=== PATIENT | female | born 1930 | race Caucasian/White ===

== ENCOUNTER 2017-01-20 21:48 | Inpatient (IN) | payer BC, MEDICARE ==
[~2017-01-20] VITALS: Ht 152.4 cm; Wt 56.7 kg
[~2017-01-20 21:48] MED LIST: PERI0.126 SWISH-SPIT; POLYSOL14 EACH EYE; VITA100064 PO
[2017-01-20] MEDS ORDERED: IOHEXOL 350 MG/ML 10 ML VIAL (for RAD DIAG) IVCONTRAST ONE (21:49)
[2017-01-20 21:50] VITALS: BP 215/95; PULSE 65; RESP 16; TEMP 97; O2SAT 99
[2017-01-20] MEDS ORDERED: SODIUM CHLORID 0.9% 500 ML INJ 500 ML IV ONE (22:15)
[2017-01-20] MEDS ORDERED: META48.53 PO (22:15)
[2017-01-20] MEDS ORDERED: SODIUM CHLORIDE 0.9% FLUSH 10 ML FLUSH IV FLUSH PRN (22:15)
[2017-01-20] MEDS ORDERED: ONDANSETRON HCL 4 MG/2 ML VIAL IVP ONE (22:15)
--- NOTE | 2017-01-20 22:35 | PD ---
HPI Chief Complaint: GI Complaint Time Seen by Provider: 22:09 Travel History International Travel<30 days: No Contact w/Intl Traveler<30days: No Traveled to known affect area: No History of Present Illness HPI This is an 86-year-old female who presents to the emergency department with increasing abdominal distention and vomiting. She has a colostomy which she's had for 18 years. She says over the past week she's been having hard stools coming from her ostomy and she's been very nauseous, constant, severe, worse this evening. She has a hernia at the area of her ostomy but feels like her stomach is more distended than normal. She says she feels like if she threw up she would feel better. Her doctor told her to take Metamucil which she's been using but she doesn't feel any better. PFSH Past Medical History Arthritis: Yes Asthma: No Atrial Fibrillation: Yes Autoimmune Disease: No Blood Disorders: No Heart Rhythm Problems: No Cancer: Yes (COLON AND BREAST) Cardiovascular Problems: Yes High Cholesterol: No Chemotherapy: Yes (1998 for colon cancer) Chest Pain: No Congestive Heart Failure: No COPD: No Cerebrovascular Accident: No Diminished Hearing: No Gastrointestinal Disorders: Yes (patient states abd hernia, rectal hernia ) GERD: Yes Glaucoma: No Genitourinary: No Hepatitis: No Hiatal Hernia: No Hypertension: Yes (tAKES NO MEDS) Kidney Stones: No Musculoskeletal: No Neurologic: Yes (tremors/shakes) Psychiatric: No Reproductive: No Respiratory: No Myocardial Infarction: No Radiation Therapy: Yes (1998) Renal Failure: No Seizures: No Sleep Apnea: No Thyroid Disease: No Ulcer: Yes Influenza Vaccination: Yes PNEUMOCCOCAL Vaccine (Year): 1994 ?: Not Menopausal: Yes : 3 Para: 3 Past Surgical History Abdominal Surgery: Yes (colon resection with COLOSTOMY 1998-CANCER) AICD: No Appendectomy: Yes Eye Surgery: Yes (cataracts both eyes) Genitourinary Surgery: No Mastectomy: Yes (LEFT 1994) Pacemaker: No Other Surgery: Yes (MASTECTOMY ON LEFT SIDE) Social History Alcohol Use: No Tobacco Use: No Substance Use: No Allergies-Medications (Allergen,Severity, Reaction): Coded Allergies: adhesive (Unverified Allergy, Severe, 10/25/16) penicillin G (Unverified Allergy, Unknown, GETS A RASH, 10/25/16) Reported Meds & Prescriptions Reported Meds & Active Scripts Active Reported Metamucil Original Texture (Psyllium Hydrophilic Mucilloid) 3.4 Gram/7 Gram Pow 1 Scoop PO TID PRN 1 rounded TEASPOON in 8 oz of liquid at the first sign of irregularity. Vitamin D3 (Cholecalciferol) 1,000 Unit Tab 1 Tab PO DAILY Review of Systems Except as stated in HPI: all other systems reviewed are Neg Physical Exam Narrative GENERAL:Well appearing, no acute distress SKIN: Focused skin assessment warm and dry. HEAD: Atraumatic. Normocephalic. EYES: Pupils equal and round. No injection or drainage. ENT: Moist mucous membranes NECK: Trachea midline. CARDIOVASCULAR: Regular rate and rhythm. No murmur appreciated. RESPIRATORY: Clear to auscultation. Breath sounds equal bilaterally. GASTROINTESTINAL: Abdomen soft, hypoactive bowel sounds in the upper abdomen, some tenderness to palpation over a large ventral hernia in the left lower quadrant adjacent to the patient's colostomy with fullness of the hernia. No rebound or guarding. MUSCULOSKELETAL: No obvious deformities. NEUROLOGICAL: Awake and alert. No obvious cranial nerve deficits. Moving all extremities. PSYCHIATRIC: Appropriate mood and affect; insight and judgment normal. Data Data Last Documented VS Vital Signs Date Time Temp Pulse Resp B/P (MAP) Pulse Ox O2 Delivery O2 Flow Rate FiO2 01/21/17 01:05 64 16 203/92 (129) 97 Room Air 01/20/17 21:50 97.0 Orders Orders Complete Blood Count With Diff (01/20/17 22:15) Comprehensive Metabolic Panel (01/20/17 22:15) Lipase (01/20/17 22:15) Urinalysis - C+S If Indicated (01/20/17 22:15) Ct Abd/Pel W Iv Contrast(Rout) (01/20/17 22:15) Iv Access Insert/Monitor (01/20/17 22:15) Ecg Monitoring (01/20/17 22:15) Oximetry (01/20/17 22:15) Ondansetron Inj (Zofran Inj) (01/20/17 22:15) Sodium Chloride 0.9% Flush (Ns Flush) (01/20/17 22:15) Sodium Chlorid 0.9% 500 Ml Inj (Ns 500 M (01/20/17 22:15) Iohexol 350 Inj (Omnipaque 350 Inj) (01/20/17 21:49) Hydralazine Inj (Apresoline Inj) (01/21/17 00:30) Urine Culture (01/21/17 00:15) Lidocaine Pf 4% Neb (Lidocaine Pf 4% Neb (01/21/17 01:00) Insert Ng Tube (01/21/17 00:53) Ng Gastric Tube Insert/Monitor (01/21/17 01:48) Ciprofloxacin 400 Mg Premix (Cipro 400 M (01/21/17 02:45) Labs Laboratory Tests Test 01/20/17 22:40 01/21/17 00:15 White Blood Count 6.1 TH/MM3 Red Blood Count 4.88 MIL/MM3 Hemoglobin 14.0 GM/DL Hematocrit 43.2 % Mean Corpuscular Volume 88.5 FL Mean Corpuscular Hemoglobin 28.8 PG Mean Corpuscular Hemoglobin Concent 32.5 % Red Cell Distribution Width 13.0 % Platelet Count 279 TH/MM3 Mean Platelet Volume 8.5 FL Neutrophils (%) (Auto) 58.5 % Lymphocytes (%) (Auto) 30.6 % Monocytes (%) (Auto) 9.2 % Eosinophils (%) (Auto) 1.2 % Basophils (%) (Auto) 0.5 % Neutrophils # (Auto) 3.5 TH/MM3 Lymphocytes # (Auto) 1.9 TH/MM3 Monocytes # (Auto) 0.6 TH/MM3 Eosinophils # (Auto) 0.1 TH/MM3 Basophils # (Auto) 0.0 TH/MM3 CBC Comment DIFF FINAL Differential Comment Blood Urea Nitrogen 15 MG/DL Creatinine 1.10 MG/DL Random Glucose 116 MG/DL Total Protein 7.5 GM/DL Albumin 3.9 GM/DL Calcium Level 9.5 MG/DL Alkaline Phosphatase 57 U/L Aspartate Amino Transf (AST/SGOT) 14 U/L Alanine Aminotransferase (ALT/SGPT) 16 U/L Total Bilirubin 0.6 MG/DL Sodium Level 139 MEQ/L Potassium Level 3.6 MEQ/L Chloride Level 100 MEQ/L Carbon Dioxide Level 33.8 MEQ/L Anion Gap 5 MEQ/L Estimat Glomerular Filtration Rate 47 ML/MIN Lipase 427 U/L Urine Color YELLOW Urine Turbidity CLEAR Urine pH 7.5 Urine Specific [place] 1.022 Urine Protein TRACE mg/dL Urine Glucose (UA) NEG mg/dL Urine Ketones NEG mg/dL Urine Occult Blood NEG Urine Nitrite NEG Urine Bilirubin NEG Urine Leukocyte Esterase MOD Urine RBC 0-2 /hpf Urine WBC 25-49 /hpf Urine Squamous Epithelial Cells 0-5 /hpf Urine Bacteria OCC /hpf Microscopic Urinalysis Comment CULTURE INDICATED MDM Medical Decision Making Medical Screen Exam Complete: Yes Emergency Medical Condition: Yes Interpretation(s) Afebrile, hypertensive No leukocytosis Bicarbonate is 33 Mild renal insufficiency Lipase is mildly elevated Urinalysis: Urinary tract infection Last 24 hours Impressions Abdomen/Pelvis CT 01/20/17 2215 Signed Impressions: Service Date/Time: Friday, January 20, 2017 23:51 - CONCLUSION: 1. Abdominal wall hernia in the left lower quadrant causing gastric outlet obstruction. 2. Cholelithiasis Antoni Concepcion MD Differential Diagnosis Small bowel obstruction, incarcerated hernia, strangulated hernia, malignancy Narrative Course This is an 86-year-old female who presents to the emergency department with a history of a ventral hernia on the left lower quadrant with nausea and poor ostomy output with distention of her abdomen. She was placed on a monitor and an IV was established. Labs were obtained which are reassuring. CT abdomen and pelvis demonstrates profound distention of the stomach with a gastric outlet obstruction due to her ventral hernia in the left lower quadrant. An NG tube was placed and the patient put out 900 cc of fluid. On reexam her hernia in the left lower quadrant which was initially full was soft, reducible, and non -tender. The patient feels much better. I don't think this reflects a strangulated or incarcerated hernia. I think the patient does require routine surgical consultation. She evidently did see Dr. Marty carr regarding her hernia in the past but they were hesitant to perform surgery given her age. Patient will be admitted for continued NG tube decompression. She does have marked hypertension. If you look over her old records she has a history of hypertension in the past and she doesn't take anything for it. I gave her a small dose of hydralazine and this reduced her map by 20%. She also received ciprofloxacin for a urinary tract infection. Diagnosis Primary Impression: Gastric outlet obstruction Admitting Information Admitting Physician Requests: Admit Analy Chow MD Jan 20, 2017 22:35
[2017-01-20 22:40] VITALS: BP 213/133; PULSE 60; RESP 16; O2SAT 100
[2017-01-20 22:45] VITALS: RESP 16; O2SAT 100
[2017-01-20 22:52] LABS: AUTOMATED NEUTROPHIL # 3.5 TH/MM3 (1.8-7.7); BASOPHIL % 0.5 % (0.0-2.0); EOSINOPHIL # 0.1 TH/MM3 (0-0.4); EOSINOPHIL % 1.2 % (0.0-4.0); HEMATOCRIT 43.2 % (35.0-46.0); HEMO FLAGS DIFF FINAL; LYMPH % 30.6 % (9.0-44.0); LYMPHOCYTE # 1.9 TH/MM3 (1.0-4.8); MEAN CELL VOLUME 88.5 FL (80.0-100.0); MEAN CORPUSCULAR HEMOGLOBIN 28.8 PG (27.0-34.0); MEAN CORPUSCULAR HGB CONC 32.5 % (32.0-36.0); MONO % 9.2 % (0.0-8.0); NEUT % 58.5 % (16.0-70.0); PLATELET COUNT 279 TH/MM3 (150-450); RED BLOOD COUNT 4.88 MIL/MM3 (4.00-5.30); WHITE BLOOD COUNT 6.1 TH/MM3 (4.0-11.0)
[2017-01-20 22:59] LABS: CHLORIDE 100 MEQ/L (98-107); POTASSIUM 3.6 MEQ/L (3.5-5.1); SODIUM (NA) 139 MEQ/L (136-145)
[2017-01-20 23:03] LABS: ANION GAP 5 MEQ/L (5-15); BICARBONATE 33.8 MEQ/L (21.0-32.0)
[2017-01-20 23:04] LABS: BLOOD UREA NITROGEN 15 MG/DL (7-18)
[2017-01-20 23:06] LABS: ALT (GPT) 16 U/L (10-53); AST (GOT) 14 U/L (15-37); GLOMERULAR FILTRATION RATE 47 ML/MIN (>89)
[2017-01-20 23:07] VITALS: BP 213/133; PULSE 60; RESP 16; O2SAT 100
[2017-01-20 23:08] LABS: TOTAL BILIRUBIN ADULT 0.6 MG/DL (0.2-1.0)
[2017-01-20 23:09] LABS: ALKALINE PHOSPHATASE 57 U/L (45-117)
[2017-01-20 23:15] VITALS: BP 225/77; PULSE 61; RESP 16; O2SAT 96
[2017-01-20 23:30] VITALS: BP 215/103; PULSE 60; RESP 16; O2SAT 99
[2017-01-21] VITALS (13 sets, daily range): BP systolic 125–237; BP diastolic 51–128; PULSE 64–79; RESP 16–20; TEMP 97.3–98.4; O2SAT 95–99
[2017-01-21] MEDS ORDERED: hydrALAZINE HCL 20 MG/ML VIAL IV PUSH ONE ×2 (00:30→06:30)
[2017-01-21 00:33] LABS: BLOOD, URINE NEG (NEG); GLUCOSE,URINE NEG (NEG); KETONE, URINE NEG (NEG); NITRITE,URINE NEG (NEG); PH, URINE 7.5 (5.0-8.5)
--- NOTE | 2017-01-21 00:34 | RADRPT ---
EXAM DATE/TIME: 01/20/2017 23:51 [facility] COMPARISON: CT ABDOMEN & PELVIS W CONTRAST, July 16, 2014, 22:05. INDICATIONS : Abdomen swelling with nause for three weeks. IV CONTRAST: 70 cc Omnipaque 350 (iohexol) IV ORAL CONTRAST: No oral contrast ingested. RADIATION DOSE: 6.89 CTDIvol (mGy) MEDICAL HISTORY : Arthritis. Cardiovascular disease Hypertension. SURGICAL HISTORY : Colon resection. Mastectomy, left.Appendectomy. ENCOUNTER: Initial ACUITY: 3 weeks PAIN SCALE: 0/10 LOCATION: Abdomen TECHNIQUE: Volumetric scanning of the abdomen and pelvis was performed. Using automated exposure control and ad justment of the mA and/or kV according to patient size, radiation dose was kept as low as reasonably achievable to obtain optimal diagnostic quality images. DICOM format image data is available electro nically for review and comparison. FINDINGS: Examination of the lung bases demonstrates no abnormality. No pleural fluid is identified. No pulmona ry nodules are present. The liver and spleen are normal in size and no focal defects are identified. 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 There are multiple stones within the gallbladder wit hout wall thickening or pericholecystic fluid the largest measuring 3 mm. There is a hernia defect in the abdominal wall the left lower quadrant with the stomach herniated through the defect. This is ma rkedly distended and fluid-filled and is causing obstruction at the level of the antrum of the stomac h. Nondilated colon is also present within the hernia defect. Examination of the pelvis demonstrates no evidence of free fluid or pelvic mass. No abnormally enlarg ed inguinal or retroperitoneal lymph nodes are present. The bladder is unremarkable. CONCLUSION: 1. Abdominal wall hernia in the left lower quadrant causing gastric outlet obstruction. 2. Cholelithiasis Antoni Concepcion MD on January 21, 2017 at 0:23 Board Certified Radiologist. This report was verified electronically.
[2017-01-21 00:45] LABS: BACTERIA, URINE OCC /hpf; COMMENT (UR) CULTURE INDICATED; CULTURE IF INDICATED CULTURE INDICATED; RBC, URINE 0-2 /hpf (0-3); SQUAMOUS EPITHELIAL CELL URINE 0-5 /hpf (0-5); URINE COLOR YELLOW (YELLW/STRAW)
[2017-01-21] MEDS ORDERED: RESP: LIDOCAINE HCL 4% PF 5 ML NEB INH ONE (01:00)
[2017-01-21] MEDS ORDERED: CIPROFLOXACIN 400 MG PREMIX 200 ML IV ONE (02:45)
[2017-01-21] MEDS ORDERED: SODIUM CHLORIDE 0.9% FLUSH 10 ML FLUSH IV FLUSH PRN (03:00)
[2017-01-21] MEDS ORDERED: LACTULOSE SYRUP 20 GM/30 ML CUP PO PRN (03:00)
[2017-01-21] MEDS ORDERED: SENNOSIDES 8.6 MG TAB PO PRN (03:00)
[2017-01-21] MEDS ORDERED: RESP: LIDOCAINE HCL 4% PF 5 ML NEB NEB ONE (03:00)
[2017-01-21] MEDS ORDERED: MORPHINE SULFATE 4 MG/ML INJ IV PUSH PRN ×2 (03:00)
[2017-01-21] MEDS ORDERED: MAGNESIUM HYDROXIDE SUSP 30 ML CUP PO PRN (03:00)
[2017-01-21] MEDS ORDERED: BISACODYL 10 MG SUPP RECTAL PRN (03:00)
[2017-01-21] MEDS ORDERED: ACETAMINOPHEN 1000 MG/100 ML 100 ML IV PRN (03:00)
[2017-01-21] MEDS: SODIUM CHLOR 0.9% 1000 ML INJ 1,000 ML IV SCH ×3 (04:22→23:26)
[2017-01-21] MEDS: SODIUM CHLORIDE 0.9% FLUSH 10 ML FLUSH IV FLUSH SCH ×2 (09:00→20:48)
[2017-01-21] MEDS ORDERED: cloNIDine HCL 0.1 MG TAB PO ONE (09:00)
--- NOTE | 2017-01-21 09:37 | HHI.HP ---
[facility] Eduardo Casanova DO Admission Diagnosis gastric outlet obstruction Diagnoses: Chief Complaint: Abdominal pain Travel History International Travel<30 Days: No Contact w/Intl Traveler <30 Da: No Traveled to Known Affected Are: No History of Present Illness 86-year-old white female being admitted for gastric outlet obstruction. Patient was in her usual state of health until about one week ago when she began having intermittent nausea, vomiting and abdominal pain. Says that at worse the pain was a 10 out of 10 but then would go away on its own. Pain had initially happened twice earlier in the week and then recurred again for the third time last night prompting her to come to the emergency room. Did not have any particular alleviating or exacerbating factors. Stated that her abdomen felt bloated with a protrusion noted in it. This hernia was apparently reduced in the ER. CT scan did show a abdominal hernia with significant gastric distention. NG tube was placed and started on low to intermittent decompression. Patient is stating that her pain is better since admission. Patient says that her surgeon is Dr. carr. Patient states that she is tired of living because of her health issues constantly debilitating her. She denies any suicidal ideation and even denies feeling depressed but says that she is just simply "sick of it" implying her health issues. She gets tearful when she discusses this. Review of Systems Except as stated in HPI: all other systems reviewed are Neg Past Family Social History Past Medical History Arthritis, atrial fibrillation, breast cancer, colon cancer, abdominal hernia, acid reflux, hypertension Past Surgical History Left-sided mastectomy, bilateral cataract surgery, colonic resection with colostomy secondary to cancer Allergies: Coded Allergies: adhesive (Unverified Allergy, Severe, 10/25/16) penicillin G (Unverified Allergy, Unknown, GETS A RASH, 10/25/16) ciprofloxacin (Verified Adverse Reaction, Intermediate, 01/21/17) LOCALIZED REDNESS AND ITCHING AT IV SITE. NO SWELLING. Family History Multiple sclerosis and one son, Parkinson's disease and another son, rheumatoid arthritis in daughter Social History Denies any alcohol, tobacco, or substance use Physical Exam Vital Signs Vital Signs Date Time Temp Pulse Resp B/P (MAP) Pulse Ox O2 Delivery O2 Flow Rate FiO2 01/21/17 08:00 97.3 78 18 126/60 (82) 96 01/21/17 05:56 97.8 72 18 193/72 (112) 98 01/21/17 04:00 97.4 65 20 200/88 (125) 99 01/21/17 03:59 01/21/17 03:35 77 151/78 (102) 01/21/17 03:05 79 16 166/89 (114) 97 Room Air 01/21/17 02:32 70 18 182/78 (112) 97 Room Air 01/21/17 01:55 70 18 184/70 (108) 97 Room Air 01/21/17 01:05 64 16 203/92 (129) 97 Room Air 01/21/17 00:45 64 16 232/128 (162) 96 Room Air 01/21/17 00:20 70 16 237/128 (164) 97 Room Air 01/20/17 23:30 60 16 215/103 (140) 99 Room Air 01/20/17 23:15 61 16 225/77 (126) 96 Room Air 01/20/17 22:45 16 100 Room Air 01/20/17 22:40 60 16 213/133 (159) 100 Room Air 01/20/17 22:12 16 01/20/17 21:50 97.0 65 16 215/95 (135) 99 Physical Exam VS: Afebrile GENERAL: Thin elderly white female lying in bed, awake, well-nourished SKIN: Warm and dry. EYES: No scleral icterus. No injection or drainage. ENT: No nasal bleeding or discharge. Mucous membranes pink and moist. Dentures in place. NG tube in place CARDIOVASCULAR: Regular rate and rhythm. no murmurs RESPIRATORY: No accessory muscle use. Clear to auscultation. Breath sounds equal bilaterally. GASTROINTESTINAL: Abdomen soft, no hernia is palpated at this time, has an obvious colostomy bag pink mucosa noted and no stool in the current bag. Abdomen is otherwise nontender and the patient says she is not hurting at this time. Normoactive bowel sounds. Extremities: No clubbing, cyanosis, or edema. No obvious deformities. MUSCULOSKELETAL: Extremities without clubbing, cyanosis, or edema. No obvious deformities. grossly intact ROM with 5/5 strength in upper and lower extremities proximally NEUROLOGICAL: Awake and alert. No obvious cranial nerve deficits. No facial droop nor slurred speech noted. PSYCHIATRIC: Tearful mood and sad affect which is consolable; insight and judgment normal. Laboratory Laboratory Tests Test 01/20/17 22:40 01/21/17 00:15 White Blood Count 6.1 Red Blood Count 4.88 Hemoglobin 14.0 Hematocrit 43.2 Mean Corpuscular Volume 88.5 Mean Corpuscular Hemoglobin 28.8 Mean Corpuscular Hemoglobin Concent 32.5 Red Cell Distribution Width 13.0 Platelet Count 279 Mean Platelet Volume 8.5 Neutrophils (%) (Auto) 58.5 Lymphocytes (%) (Auto) 30.6 Monocytes (%) (Auto) 9.2 Eosinophils (%) (Auto) 1.2 Basophils (%) (Auto) 0.5 Neutrophils # (Auto) 3.5 Lymphocytes # (Auto) 1.9 Monocytes # (Auto) 0.6 Eosinophils # (Auto) 0.1 Basophils # (Auto) 0.0 CBC Comment DIFF FINAL Differential Comment Blood Urea Nitrogen 15 Creatinine 1.10 Random Glucose 116 Total Protein 7.5 Albumin 3.9 Calcium Level 9.5 Alkaline Phosphatase 57 Aspartate Amino Transf (AST/SGOT) 14 Alanine Aminotransferase (ALT/SGPT) 16 Total Bilirubin 0.6 Sodium Level 139 Potassium Level 3.6 Chloride Level 100 Carbon Dioxide Level 33.8 Anion Gap 5 Estimat Glomerular Filtration Rate 47 Lipase 427 Urine Color YELLOW Urine Turbidity CLEAR Urine pH 7.5 Urine Specific [place] 1.022 Urine Protein TRACE Urine Glucose (UA) NEG Urine Ketones NEG Urine Occult Blood NEG Urine Nitrite NEG Urine Bilirubin NEG Urine Leukocyte Esterase MOD Urine RBC 0-2 Urine WBC 25-49 Urine Squamous Epithelial Cells 0-5 Urine Bacteria OCC Microscopic Urinalysis Comment CULTURE INDICATED Date/Time Source Procedure Growth Status 01/21/17 00:15 Urine Clean Catch Urine Culture Pending Received Result Diagram: 01/20/17223901/20/172239 Caprini VTE Risk Assessment Caprini VTE Risk Assessment: Mod/High Risk (score >= 2) Caprini Risk Assessment Model Point Value = 1 Point Value = 2 Point Value = 3 Point Value = 5 Age 41-60 Minor surgery BMI > 25 kg/m2 Swollen legs Varicose veins or History of unexplained or recurrent spontaneous Oral contraceptives or hormone replacement Sepsis (< 1 month) Serious lung disease, including pneumonia (< 1 month) Abnormal pulmonary function Acute myocardial infarction Congestive heart failure (< 1 month) History of inflammatory bowel disease Medical patient at bed rest Age 61-74 Arthroscopic surgery Major open surgery (> 45 min) Laparoscopic surgery (> 45 min) Malignancy Confined to bed (> 72 hours) Immobilizing plaster cast Central venous access Age >= 75 History of VTE Family history of VTE Factor V Leiden Prothrombin [id number] Lupus anticoagulant Anticardiolipin antibodies Elevated serum homocysteine Heparin-induced thrombocytopenia Other congenital or acquired thrombophilia Stroke (< 1 month) Elective arthroplasty Hip, pelvis, or leg fracture Acute spinal cord injury (< 1 month) Prophylaxis Regimen Total Risk Factor Score Risk Level Prophylaxis Regimen 0-1 Low Early ambulation 2 Moderate Order ONE of the following: *Sequential Compression Device (SCD) *Heparin 5000 units SQ BID 3-4 Higher Order ONE of the following medications: *Heparin 5000 units SQ TID *Enoxaparin/Lovenox 40 mg SQ daily (WT < 150 kg, CrCl > 30 mL/min) *Enoxaparin/Lovenox 30 mg SQ daily (WT < 150 kg, CrCl > 10-29 mL/min) *Enoxaparin/Lovenox 30 mg SQ BID (WT < 150 kg, CrCl > 30 mL/min) AND/OR *Sequential Compression Device (SCD) 5 or more Highest Order ONE of the following medications: *Heparin 5000 units SQ TID (Preferred with Epidurals) *Enoxaparin/Lovenox 40 mg SQ daily (WT < 150 kg, CrCl > 30 mL/min) *Enoxaparin/Lovenox 30 mg SQ daily (WT < 150 kg, CrCl > 10-29 mL/min) *Enoxaparin/Lovenox 30 mg SQ BID (WT < 150 kg, CrCl > 30 mL/min) AND *Sequential Compression Device (SCD) Assessment and Plan Assessment and Plan Gastric outlet obstruction - Independently reviewed the CT scan shows significant constipation all throughout as well as a herniated bowel with significant gastric distention ( this was prior to manual reduction performed in the emergency room) - Case discussed with general surgery, plan to continue low to intermittent NG decompression for at least the next 24 hours - Diet per surgery - Mildly elevated lipase which is likely from intestinal strain Nausea - Likely secondary to above problem There are no signs or symptoms of a urinary tract infection, - we'll stop the antibiotic unless urine culture grows out pathologic bacteria. Hypertension - Likely untreated at home, will start nifedipine with as needed clonidine DVT prophylaxis with Lovenox Physician Certification 2 Midnight Certification Type: Admission for Inpatient Services Order for Inpatient Services The services are ordered in accordance with Medicare regulations or non- Medicare payer requirements, as applicable. In the case of services not specified as inpatient-only, they are appropriately provided as inpatient services in accordance with the 2-midnight benchmark. Estimated LOS (days): 2 2 days is the estimated time the patient will need to remain in the hospital, assuming treatment plan goals are met and no additional complications. Post-Hospital Plan: Home Moshe Connor MD Jan 21, 2017 09:37
[2017-01-21] MEDS: NIFEdipine 10 MG CAP PO SCH ×3 (10:16→21:12)
[2017-01-21] MEDS: DOCUSATE SODIUM 50 MG/SENNA 8.6 MG TAB PO SCH ×2 (10:16→21:12)
--- NOTE | 2017-01-21 14:46 | MB ---
cc: RESHMA EVANS MD DATE OF CONSULTATION: 01/21/2017. REASON FOR CONSULTATION: Gastric outlet obstruction, abdominal pain. 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 The patient states she developed significant abdominal pain and nausea and vomiting approximately one week ago and it continued to get worse. The patient states the pain was initially a 10/10 sharp, located around the parastomal hernia and worse with movement and better with lying still. The patient also has evidence of obstruction with multiple episodes of nausea, vomiting and decreased ostomy output. The patient came to the emergency department. Further evaluation including a CT scan showed a significantly large dilated stomach with evidence of herniation of stomach and bowel in her parastomal hernia. An nasogastric tube was placed with decompression and surgery was consulted for further evaluation. On my exam, the patient states she feels much better. Now her abdominal pain has improved significantly and I am evaluating her and her parastomal hernia appears to be completely reduced. The patient is still yet for colostomy output and was decompressed with nasogastric tube. She denies fever or chills. She does have a significant history of again medical and surgical history in the past. She has had intermittent obstructions before that have improved with nonoperative management. She was under discussion for consideration for a parastomal hernia repair. PAST MEDICAL HISTORY: 1. Arthritis. 2. Atrial fibrillation. 3. Colon cancer. 4. Breast cancer. 5. Hernia. 6. Reflux. 7. Hypertension. PAST SURGICAL HISTORY: 1. Appendectomy. 2. Left breast mastectomy. 3. Bilateral cataract surgery. 4. Colon resection with colostomy due to colon cancer. The patient has been in remission for over 18 years. ALLERGIES: 1. PENICILLIN. 2. CIPRO. 3. ADHESIVE TAPE. MEDICATIONS: See the electronic medical record. FAMILY HISTORY: Some with multiple sclerosis. Some with Parkinson's. Daughter with rheumatoid arthritis. SOCIAL HISTORY: Denies smoking, ethyl alcohol or IV drug abuse. REVIEW OF SYSTEMS: GENERAL: Denies eye pain, ear pain. NECK: Denies swelling or pain. CHEST: Denies cough or wheeze. HEART: Atrial fibrillation. Denies palpitations or chest pain. ABDOMEN: Complains of nausea and vomiting and abdominal pain, hernia. GENITOURINARY: Denies dysuria or hematuria. ENDOCRINE: Denies polyuria or polydipsia. INTEGUMENT: Denies masses or lesions. NEUROLOGIC: Denies numbness or tingling. PSYCHIATRIC: Denies change in mood or sensorium. PHYSICAL EXAMINATION: GENERAL: In no acute distress. VITAL SIGNS: 97.3, pulse 78, respirations 18, blood pressure 126/16, oxygen saturation 96%. HEAD, EYES, EARS, NOSE, THROAT: Pupils equal, round and reactive. NECK: The neck is supple. Trachea is midline. Nasogastric tube in place. LUNGS: Bilateral expansion. Clear. HEART: No murmur. S1 and S2. ABDOMEN: Soft. Nondistended. Palpable herniated defect around the colostomy. Colostomy with bag in place. Good seal. No evidence of stool or gas in the bag currently. MUSCULOSKELETAL: Warm, well-perfused moving all extremities. NEUROLOGIC: GCS of 15, 5/5 motor all extremities. PSYCHIATRIC: Good insight. Good judgment. LABORATORY AND DIAGNOSTIC DATA: WBCs 6.1, hemoglobin 14, hematocrit 43.2, platelets 279,000. Sodium 139, potassium 3.6, chloride 100, BUN 15, creatinine 1.1, calcium 9.5, total bilirubin 0.6, AST 14, ALT 16, albumin 3.9, lipase 427. CT reviewed by myself showing a significant abdominal distention with abdominal wall hernia and distal stomach with herniation and hernia causing gastric outlet obstruction. ASSESSMENT: An 86-year-old female with multiple medical issues. 1. History of parastomal hernia that was initially incarcerated that has subsequently been reduced and the patient is currently on nasogastric tube compression. PLAN: After full clinical, radiologic, laboratory workup the patient with the above-named issues includin. Incarcerated hernia which again has evidently been reduced. Therefore nonemergent surgical intervention necessary. Discussed with the patient to has been discussing with Dr. Hoffman for possible operative intervention. We will consider operation at this time and will discuss with Dr. Hoffman whether the patient will need to stay in the hospital or if the patient does desire to go home and have this worked up as an outpatient. Currently the patient with recent NG tube placement. I recommend continuing it for at least 24 hours and then consider p.o. challenge. this was discussed with the patient in detail. Further, continue IV fluid resuscitation, correct and check any electrolyte abnormalities and assist with pain control. Medicine to do overall of medical management. Thank you for the consultation. MD NARDA Parra/JOE /11:45 AM /2:34 PM
[2017-01-21] MEDS ORDERED: CIPROFLOXACIN 400 MG PREMIX 200 ML IV SCH (23:00)
[2017-01-22] VITALS (7 sets, daily range): BP systolic 142–187; BP diastolic 64–87; PULSE 67–82; RESP 12–17; TEMP 96.2–98.6; O2SAT 94–98
[2017-01-22] MEDS: NIFEdipine 10 MG CAP PO SCH ×3 (05:50→23:14)
[2017-01-22 07:20] LABS: CHLORIDE 105 MEQ/L (98-107); POTASSIUM 3.5 MEQ/L (3.5-5.1); SODIUM (NA) 138 MEQ/L (136-145)
[2017-01-22 07:31] LABS: AUTOMATED NEUTROPHIL # 5.4 TH/MM3 (1.8-7.7); BASOPHIL # 0.1 TH/MM3 (0-0.2); EOSINOPHIL # 0.1 TH/MM3 (0-0.4); HEMATOCRIT 39.7 % (35.0-46.0); HEMO FLAGS DIFF FINAL; LYMPH % 15.6 % (9.0-44.0); LYMPHOCYTE # 1.2 TH/MM3 (1.0-4.8); MEAN CELL VOLUME 89.1 FL (80.0-100.0); MEAN CORPUSCULAR HEMOGLOBIN 29.5 PG (27.0-34.0); MEAN CORPUSCULAR HGB CONC 33.1 % (32.0-36.0); MONO % 10.7 % (0.0-8.0); NEUT % 71.7 % (16.0-70.0); PLATELET COUNT 230 TH/MM3 (150-450); RED BLOOD COUNT 4.46 MIL/MM3 (4.00-5.30); RED CELL DISTRIBUTION WIDTH 13.3 % (11.6-17.2); WHITE BLOOD COUNT 7.6 TH/MM3 (4.0-11.0)
[2017-01-22 07:48] LABS: ALKALINE PHOSPHATASE 48 U/L (45-117); ALT (GPT) 12 U/L (10-53); ANION GAP 8 MEQ/L (5-15); AST (GOT) 13 U/L (15-37); BICARBONATE 24.8 MEQ/L (21.0-32.0); BLOOD UREA NITROGEN 7 MG/DL (7-18); GLOMERULAR FILTRATION RATE 83 ML/MIN (>89); TOTAL BILIRUBIN ADULT 1.1 MG/DL (0.2-1.0)
[2017-01-22] MEDS: SODIUM CHLORIDE 0.9% FLUSH 10 ML FLUSH IV FLUSH SCH ×2 (09:00→21:00)
[2017-01-22] MEDS: SODIUM CHLOR 0.9% 1000 ML INJ 1,000 ML IV SCH ×2 (09:08→23:16)
[2017-01-22] MEDS: DOCUSATE SODIUM 50 MG/SENNA 8.6 MG TAB PO SCH ×2 (09:08→20:50)
[2017-01-22] MEDS ORDERED: SOD PHOSPHATE/SOD BIPHOSPHATE (ADULT) ENEMA 133ML RECTAL ONE (12:00)
--- NOTE | 2017-01-22 15:40 | HHI.PR ---
Subjective Remarks Nursing reports no deterioration since last night. Patient denies any pain since admission. Has had over 575 mL's suctioned since admission when speaking with nursing this morning. Patient still has continence being suctioned out actively. Objective Vital Signs Date Time Temp Pulse Resp B/P (MAP) Pulse Ox O2 Delivery O2 Flow Rate FiO2 01/22/17 12:00 97.5 80 12 182/79 (113) 97 01/22/17 09:23 97.3 67 16 168/76 (106) 98 01/22/17 04:00 98.6 70 16 173/82 (112) 96 01/22/17 00:00 98.3 68 16 142/64 (90) 96 01/21/17 21:00 98.4 78 18 164/74 (104) 95 01/21/17 16:00 98.2 69 168/87 (114) 97 I/O 01/21/17 01/21/17 01/21/17 01/22/17 01/22/17 01/22/17 07:00 15:00 23:00 07:00 15:00 23:00 Intake Total 700 ml 800 ml 530 ml 1164 ml 306 ml Output Total 2050 ml 200 ml 275 ml Balance -1350 ml 800 ml 330 ml 889 ml 306 ml Intake Oral 0 ml IV Total 700 ml 800 ml 530 ml 1164 ml 306 ml Output Urine Total 800 ml Gastric Drainage Total 1250 ml 200 ml 275 ml # Voids 2 1 2 2 # Bowel Movements 1 Result Diagram: 01/22/1746 01/22/1746 Objective Remarks Has NG tube in place with low to intermittent suction Abdomen has no protruding hernias, no abdominal tenderness, colostomy bag intact A/P Assessment and Plan Gastric outlet obstruction - CT showing herniated stomach w/ distention as well has herniated bowel - D/w Dr. Mccord, transferring pt to [facility] where Dr. Hoffman is expected to take to OR in am Nausea - resolved There are no signs or symptoms of a urinary tract infection, - we'll stop the antibiotic unless urine culture grows out pathologic bacteria. Hypertension - nifedipine with as needed clonidine, starting lisinopril as well given poor control. Labs stable. DVT prophylaxis with Lovenox - giving one-time dose of Lovenox today, OR planned tomorrow so will not receive further dosing, to resume dosing postop per general surgery and hospitalist team. Moshe Connor MD Jan 22, 2017 15:40
--- NOTE | 2017-01-22 15:55 | HHI.PR ---
cc: Katie Mccord MD Subjective Subjective Notes DAILY PROGRESS NOTE FOR SURGICAL ATTENDING, DR. KATIE MCCORD I feel better after the NG tube was placed I saw Dr. Hoffman earlier this year and was talking about surgery Dr. hoffman is going to see me tomorrow Objective Vitals/I&O Vital Signs Date Time Temp Pulse Resp B/P (MAP) Pulse Ox O2 Delivery O2 Flow Rate FiO2 01/22/17 12:00 97.5 80 12 182/79 (113) 97 01/21/17 03:05 Room Air Labs Laboratory Tests Test 01/22/17 06:46 White Blood Count 7.6 Red Blood Count 4.46 Hemoglobin 13.2 Hematocrit 39.7 Mean Corpuscular Volume 89.1 Mean Corpuscular Hemoglobin 29.5 Mean Corpuscular Hemoglobin Concent 33.1 Red Cell Distribution Width 13.3 Platelet Count 230 Mean Platelet Volume 8.9 Neutrophils (%) (Auto) 71.7 Lymphocytes (%) (Auto) 15.6 Monocytes (%) (Auto) 10.7 Eosinophils (%) (Auto) 1.0 Basophils (%) (Auto) 1.0 Neutrophils # (Auto) 5.4 Lymphocytes # (Auto) 1.2 Monocytes # (Auto) 0.8 Eosinophils # (Auto) 0.1 Basophils # (Auto) 0.1 CBC Comment DIFF FINAL Differential Comment Blood Urea Nitrogen 7 Creatinine 0.67 Random Glucose 95 Total Protein 6.2 Albumin 3.2 Calcium Level 7.9 Alkaline Phosphatase 48 Aspartate Amino Transf (AST/SGOT) 13 Alanine Aminotransferase (ALT/SGPT) 12 Total Bilirubin 1.1 Sodium Level 138 Potassium Level 3.5 Chloride Level 105 Carbon Dioxide Level 24.8 Anion Gap 8 Estimat Glomerular Filtration Rate 83 Date/Time Source Procedure Growth Status 01/21/17 00:15 Urine Clean Catch Urine Culture - Final 10-50,000 CFU/ML MIXED GRAM POSITIVE ... Complete Radiology Last Impressions Abdomen/Pelvis CT 01/20/17 7672 Signed Impressions: Service Date/Time: Friday, January 20, 2017 23:51 - CONCLUSION: 1. Abdominal wall hernia in the left lower quadrant causing gastric outlet obstruction. 2. Cholelithiasis Antoni Concepcion MD Lungs: Clear Abdomen: Non-distended, Non-tender, Other (ostomy with minimal output left lower quadrant hernias been reducedPatient has NG tube in place) Narrative Exam Patient has NG tube in place hernia reduced 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 (3) Gastric outlet obstruction ICD Codes: K31.1 - Adult hypertrophic pyloric stenosis Status: Acute (4) Abnormal CT of the abdomen ICD Codes: R93.5 - Abnormal findings on diagnostic imaging of other abdominal regions, including retroperitoneum Status: Chronic (5) Gallstones ICD Codes: K80.20 - Calculus of gallbladder without cholecystitis without obstruction Status: Chronic (6) History of colon cancer ICD Codes: Z85.038 - Personal history of other malignant neoplasm of large intestine Status: Chronic Assessment and Plan 86-year-old female who has a fairly sizable impressive parastomal hernia that's been present for some time Earlier this year she was evaluated by Dr. Marty hoffman as an outpatient and the patient was considering surgery Recently admitted for gastric outlet obstruction was thought to be secondary to this parastomal hernia containing half the stomach and small bowel and some transverse colon This is been reduced after placement of G-tube It is noted she also has gallstones Dr. Hoffman will see her tomorrow to consider surgical intervention on this parastomal hernia Attending Statement NOTE FOR SURGICAL ATTENDING, DR. KATIE MCCORD I agree with above assessment and plan. The following services were provided during this hospital visit: Chart data review, vital sign assessments/reviewing monitor data Review of consultations notes if present. Medication orders/review and/or management Ordering and/or reviewing lab tests Ordering and/or interpreting/reviewing x-rays and/or diagnostic studies Care of the patient and discussion of the patient with the care team Documentation time To help prompt me to consider important information that might be impacting today's encounter and assessment, information from prior notes written by myself or my colleagues may have been "brought forward/copy and pasted" into today's note. Problem Qualifiers (1) Parastomal hernia: Qualified Codes: K43.3 - Parastomal hernia with obstruction, without gangrene Katie Mccord MD Jan 22, 2017 15:55
[2017-01-22] MEDS ORDERED: ENOXAPARIN SODIUM 30 MG/0.3 ML SYRINGE SQ ONE (16:00)
[2017-01-22] MEDS: LISINOPRIL 10 MG TAB PO SCH (16:38)
[2017-01-22] MEDS ORDERED: cloNIDine HCL 0.1 MG TAB PO PRN (22:30)
[2017-01-23] VITALS (7 sets, daily range): BP systolic 106–145; BP diastolic 46–75; PULSE 50–74; RESP 16–18; TEMP 96–98; O2SAT 95–98
[2017-01-23] MEDS: SODIUM CHLOR 0.9% 1000 ML INJ 1,000 ML IV SCH ×2 (04:52→14:52)
[2017-01-23] MEDS: NIFEdipine 10 MG CAP PO SCH ×3 (06:29→20:51)
--- NOTE | 2017-01-23 08:46 | HHI.PR ---
Subjective Subjective Notes feels much better, wants NG out. reports ostomy is working well Objective Vitals/I&O Vital Signs Date Time Temp Pulse Resp B/P (MAP) Pulse Ox O2 Delivery O2 Flow Rate FiO2 01/23/17 08:00 97.3 59 18 115/75 (88) 95 01/21/17 03:05 Room Air Labs Date/Time Source Procedure Growth Status 01/21/17 00:15 Urine Clean Catch Urine Culture - Final 10-50,000 CFU/ML MIXED GRAM POSITIVE ... Complete Radiology Last Impressions Abdomen/Pelvis CT 01/20/172214 Signed Impressions: Service Date/Time: Friday, January 20, 2017 23:51 - CONCLUSION: 1. Abdominal wall hernia in the left lower quadrant causing gastric outlet obstruction. 2. Cholelithiasis Antoni Concepcion MD Abdomen: Non-distended, Non-tender Narrative Exam hernia reduced, abdomen soft 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 (3) Gastric outlet obstruction ICD Codes: K31.1 - Adult hypertrophic pyloric stenosis Status: Acute (4) Abnormal CT of the abdomen ICD Codes: R93.5 - Abnormal findings on diagnostic imaging of other abdominal regions, including retroperitoneum Status: Chronic (5) Gallstones ICD Codes: K80.20 - Calculus of gallbladder without cholecystitis without obstruction Status: Chronic (6) History of colon cancer ICD Codes: Z85.038 - Personal history of other malignant neoplasm of large intestine Status: Chronic Assessment and Plan large parastomal hernia long discussion with patient and her daughter (via phone) about risks and benefits of repair vs observation. she does not want to go thru this again and wants to have surgery. she understands risk and accepts it. Problem Qualifiers (1) Parastomal hernia: Qualified Codes: K43.3 - Parastomal hernia with obstruction, without gangrene Marty Hoffman MD Jan 23, 2017 08:46
[2017-01-23] MEDS: SODIUM CHLORIDE 0.9% FLUSH 10 ML FLUSH IV FLUSH SCH ×2 (09:00→20:51)
[2017-01-23] MEDS: DOCUSATE SODIUM 50 MG/SENNA 8.6 MG TAB PO SCH ×2 (09:46→20:51)
[2017-01-23] MEDS: LISINOPRIL 10 MG TAB PO SCH (09:46)
[2017-01-23] MEDS ORDERED: NEOSTIGMINE 3 MG/3 ML SYR IV ONE (12:00)
[2017-01-23] MEDS ORDERED: ceFAZolin INJ 1,000 MG VIAL IV ONE ×2 (12:00→13:30)
[2017-01-23] MEDS ORDERED: ONDANSETRON HCL 4 MG/2 ML VIAL IV PUSH ONE (12:00)
[2017-01-23] MEDS ORDERED: ROCURONIUM INJ 50 MG/5 ML SYRINGE IV PUSH ONE (12:00)
[2017-01-23] MEDS ORDERED: PROPOFOL 200 MG/20 ML AMP IV ONE (12:00)
[2017-01-23] MEDS ORDERED: DEXAMETHASONE SOD PHOS 4 MG/ML VIAL IV ONE (12:00)
[2017-01-23] MEDS ORDERED: LIDOCAINE HCL 1% PF 5 ML AMPULE OTHER ONE (12:00)
[2017-01-23] MEDS ORDERED: GLYCOPYRROLATE 1 MG/5 ML SYRINGE IV PUSH ONE (12:00)
[2017-01-23] MEDS ORDERED: BACITRACIN TOP OINT 15 GM TUBE ONE (12:48)
[2017-01-23] MEDS ORDERED: LIDOCAINE 1%/EPINEPHrine 1:100,000 SOLN 50 ML VIAL ONE (12:48)
[2017-01-23] MEDS ORDERED: BUPIVACAINE/EPINEPHRINE 0.5% PF 30 ML VIAL ONE (14:23)
[2017-01-23] MEDS ORDERED: DO NOT ADM ANY ANTICOAGULANT DRUGS PRN (15:08)
[2017-01-23] MEDS ORDERED: *morphine SULFATE 8 MG/ML PERIprocedure ONLY ONE (15:23)
--- NOTE | 2017-01-23 15:47 | MP ---
cc: RYLEY WYATT M.D. DATE OF SURGERY: 01/23/2017 PREOPERATIVE DIAGNOSIS Symptomatic large parastomal hernia. POSTOPERATIVE DIAGNOSIS Symptomatic large parastomal hernia. PROCEDURE PERFORMED Parastomal hernia repair with mesh. SURGEON Ryley Wyatt. ANESTHESIA General endotracheal. COMPLICATIONS None. INDICATION FOR PROCEDURE Ms. Mejias is a pleasant 78-year-old female who I saw several months ago in the office with a large parastomal hernia. She has a history of colon cancer and has a permanent ostomy in her left middle quadrant. At that time she was offered observation versus repair. She initially went with observation. The patient reports over the last several weeks she has had intermittent episodes of abdominal pain associated with pain around her stoma site and a large bulge. She was able to reduce the hernia on several occasions but most recently she had some difficulty reducing the hernia and developed progressive nausea and vomiting. She was brought to the emergency department where she has had a CT scan of the abdomen and pelvis which revealed the majority of her stomach in the hernia sac as well as transverse colon and she had a gastric outlet obstruction. An NG tube was placed and the hernia was reduced in the emergency room and she did well. The patient was admitted for observation. Surgical consultation was requested. The patient was seen and evaluated and offered continued observation versus repair. Because she had this severe episode she wanted to proceed with repair. Because of her advanced age she was warned this was a high-risk procedure and she was willing to accept this. DETAILS OF PROCEDURE The patient was identified, brought to the operating room and placed supine on the operating table. After adequate general anesthesia was achieved the abdomen was prepped and draped in standard surgical fashion. A Ray-Naveed was placed in the stoma and Ioban placed over it. A midline incision was made using the patient's previous midline incision after anesthetizing the skin and subcutaneous tissue with 0.25% Marcaine. Dissection proceeded down immediately into the hernia sac which was just under the skin. The hernia sac was opened. The hernia sac was found to contain mostly small bowel. The small bowel was reduced back into the abdominal cavity. The hernia sac was then excised at its base circumferentially around the descending colon which was seen going up to the stoma site. The fascial edges were cleaned off circumferentially. Attention was now directed to repair. Repair was accomplished using a two-layer mesh technique. First primary repair was used to hold the small bowel back within the abdominal cavity. A 0 Prolene suture interrupted was used to close the defect transversely. Once this was accomplished the fascia was cleaned off over several centimeters away from the primary repair. A piece of [place] Bio-A mesh was then introduced. The knots in the mesh was used to conform right around the colon coming through the abdominal wall fascia. The defect where the colon was going through was checked and easily admitted 1-2 fingers without any problem. The mesh was then secured circumferentially over top of the primary repair using 2-0 Vicryl suture. With this the defect was completely covered in two layers and there was generous mesh overlap. The wound was copiously irrigated with normal saline solution. 0.25% Marcaine was injected around the fascia where the sutures were. The wound was then closed in two layers using 3-0 Vicryl for the subcutaneous fat and skin ale for the skin. A ABDULKADIR dressing was then applied to the surgical wound. The Ioban was then removed off the ostomy and the Ray-Naveed removed. An ostomy appliance was then applied. The patient tolerated the procedure with minimal blood loss and no instability. MD GISSEL Morse/JOE /3:15 PM /3:41 PM
--- NOTE | 2017-01-23 18:44 | HHI.PR ---
Subjective Remarks denies cp/sob denies nausea or vomiting vital signs stable - noted to be bradycardic Objective Vitals Vital Signs Date Time Temp Pulse Resp B/P (MAP) Pulse Ox O2 Delivery O2 Flow Rate FiO2 01/23/17 16:00 96.9 50 18 124/58 (80) 98 01/23/17 15:43 97.9 54 18 131/90 (104) 100 Nasal Cannula 2 01/23/17 15:30 52 20 138/65 (89) 100 Nasal Cannula 2 01/23/17 15:15 62 15 152/79 (103) 100 Nasal Cannula 2 01/23/17 15:07 97.9 83 17 161/72 (101) 98 Nasal Cannula 2 01/23/17 11:46 98.0 60 16 140/64 (89) 95 01/23/17 08:00 97.3 59 18 115/75 (88) 95 01/23/17 04:00 96.4 67 17 145/70 (95) 96 01/23/17 00:00 97.5 74 16 111/58 (75) 97 01/22/17 22:00 97.4 69 17 187/87 (120) 96 I/O 01/22/17 01/22/17 01/22/17 01/23/17 01/23/17 01/23/17 07:00 15:00 23:00 07:00 15:00 23:00 Intake Total 1164 ml 306 ml 704 ml 679 ml 1000 ml 240 ml Output Total 275 ml 300 ml 30 ml Balance 889 ml 306 ml 404 ml 679 ml 970 ml 240 ml Intake Oral 0 ml 240 ml IV Total 1164 ml 306 ml 704 ml 679 ml Other 1000 ml Gastric Drainage Total 275 ml 300 ml Estimated Blood Loss 30 ml # Voids 2 2 2 2 4 # Bowel Movements 1 Result Diagram: 01/22/1746 01/22/1746 Imaging Last Impressions Abdomen/Pelvis CT 01/20/17 Signed Impressions: Service Date/Time: Friday, January 20, 2017 23:51 - CONCLUSION: 1. Abdominal wall hernia in the left lower quadrant causing gastric outlet obstruction. 2. Cholelithiasis Antoni Concepcion MD Objective Remarks AAOx3 PERRLA Clear lungs BL Abdomen is soft, tender to palpation of surgical area. Surgical incision ocvered by dressing C/D/I Procedures sp repair of peristomal hernia with Mesh. Medications and IVs Current Medications Medications (Trade) Dose Ordered Sig/Paul Route Start Time Stop Time Status Last Admin Sodium Chloride 1,000 ml @ 100 mls/hr Q10H IV 01/21/17 02:52 01/22/17 23:16 (NS Flush) 2 ml UNSCH PRN IV FLUSH 01/21/17 03:00 (NS Flush) 2 ml BID IV FLUSH 01/21/17 09:00 (Zofran Inj) 4 mg Q6H PRN IVP 01/21/17 03:00 Acetaminophen 100 ml @ 400 mls/hr Q6H PRN IV 01/21/17 03:00 (Kaity-Colace) 1 tab BID PO 01/21/17 09:00 01/23/17 09:46 (Milk Of Magnesia Liq) 30 ml Q12H PRN PO 01/21/17 03:00 (Senokot) 17.2 mg Q12H PRN PO 01/21/17 03:00 (Dulcolax Supp) 10 mg DAILY PRN RECTAL 01/21/17 03:00 (Lactulose Liq) 30 ml DAILY PRN PO 01/21/17 03:00 (Procardia) 10 mg Q8HR PO 01/21/17 09:00 01/23/17 06:29 (Prinivil) 10 mg DAILY PO 01/22/17 15:45 01/23/17 09:46 (Catapres) 0.1 mg Q6H PRN PO 01/22/17 22:30 01/22/17 23:14 Cefazolin Sodium 1000 mg/Sodium Chloride 100 ml @ 200 mls/hr CASINO DEALER IV 01/23/17 08:45 01/26/17 08:44 (Morphine Inj) 2 mg Q3H PRN IV PUSH 01/23/17 15:15 ([place] 5-325 Mg) 1 tab Q4H PRN PO 01/23/17 15:15 Miscellaneous Information ALL NURSING DEPARTME... UNSCH PRN .XX 01/23/17 15:08 01/24/17 15:07 Urinary Catheter: No Vascular Central Line Catheter: No A/P Problem List: (1) Parastomal hernia ICD Code: K43.5 - Parastomal hernia without obstruction or gangrene Status: Chronic Plan: The patient was admitted to the medical floor, started on IV fluids and place nothing by mouth. The patient is status post parastomal hernia repair with mesh. Patient on clear liquid diet and tolerating it. Management as per general surgery. (2) Nausea ICD Code: R11.0 - Nausea Plan: Resolved. Continue Zofran IV as needed for nausea. (3) HTN (hypertension) ICD Code: I10 - Essential (primary) hypertension Plan: Is to be stable today. The pressure elevated previously, however much improved after the patient also nifedipine. Continue lisinopril and nifedipine. (4) Abnormal urinalysis ICD Code: R82.90 - Unspecified abnormal findings in urine Plan: Urine culture concurrent with contamination. Patient is asymptomatic and white blood cell count is normal. Continue to monitor off antibiotics. (5) BRANDY (acute kidney injury) ICD Code: N17.9 - Acute kidney failure, unspecified Status: Resolved Plan: Retina admission 1.1, down to 0.6 today. Likely due to prerenal azotemia due to dehydration. Now much improved after IV fluid administration. (6) Elevated lipase ICD Code: R74.8 - Abnormal levels of other serum enzymes Status: Acute Plan: Likely secondary to hernia incarceration. The patient denies nausea or abdominal pain. Continue to monitor lipase. Assessment and Plan DVT prophylaxis: SCDs, chemoprophylaxis as per general surgery. Problem Qualifiers (1) Parastomal hernia: Qualified Codes: K43.3 - Parastomal hernia with obstruction, without gangrene (2) HTN (hypertension): Qualified Codes: I10 - Essential (primary) hypertension Peter Matson MD Jan 23, 2017 18:44
--- NOTE | 2017-01-23 19:32 | EKG ---
Date Performed: 01/23/2017 Time Performed: 10:30:05 PTAGE: 86 years EKG: Sinus rhythm NORMAL ECG Since PREVIOUS TRACING , no significant change noted PREVIOUS TRACIN07/15/2014 03.27 DOCTOR: Mari Lebron Interpretating Date/Time 01/23/2017 19:30:36
[2017-01-23] MEDS: ACETAMINOPHEN/HYDROcodone 325 MG/5 MG TAB PO PRN (21:00)
[2017-01-24] VITALS (7 sets, daily range): BP systolic 118–169; BP diastolic 58–77; PULSE 62–119; RESP 16–20; TEMP 96.9–99.5; O2SAT 92–97
[2017-01-24] MEDS: SODIUM CHLOR 0.9% 1000 ML INJ 1,000 ML IV SCH ×2 (00:46→11:43)
[2017-01-24] MEDS: NIFEdipine 10 MG CAP PO SCH ×3 (06:37→20:49)
[2017-01-24] MEDS: LISINOPRIL 10 MG TAB PO SCH (07:57)
[2017-01-24] MEDS: DOCUSATE SODIUM 50 MG/SENNA 8.6 MG TAB PO SCH ×2 (07:57→20:49)
[2017-01-24] MEDS: SODIUM CHLORIDE 0.9% FLUSH 10 ML FLUSH IV FLUSH SCH ×2 (07:57→20:51)
--- NOTE | 2017-01-24 08:56 | HHI.PR ---
Subjective Subjective Notes Resting in bed Had nightmare last night but thankful to the nurse who helped her last night Objective Vitals/I&O Vital Signs Date Time Temp Pulse Resp B/P (MAP) Pulse Ox O2 Delivery O2 Flow Rate FiO2 01/24/17 07:56 97.8 90 18 129/60 (83) 92 01/23/17 21:15 Nasal Cannula 2.00 Labs Date/Time Source Procedure Growth Status 01/21/17 00:15 Urine Clean Catch Urine Culture - Final 10-50,000 CFU/ML MIXED GRAM POSITIVE ... Complete Radiology Last Impressions Abdomen/Pelvis CT 01/20/17 5585 Signed Impressions: Service Date/Time: Friday, January 20, 2017 23:51 - CONCLUSION: 1. Abdominal wall hernia in the left lower quadrant causing gastric outlet obstruction. 2. Cholelithiasis Antoni Concepcion MD Cardiovascular: Regular Lungs: Clear Abdomen: Other (ABDULKADIR in place; ostomy with appliance ) Extremities: No edema 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 (3) Gastric outlet obstruction ICD Codes: K31.1 - Adult hypertrophic pyloric stenosis Status: Acute (4) Abnormal CT of the abdomen ICD Codes: R93.5 - Abnormal findings on diagnostic imaging of other abdominal regions, including retroperitoneum Status: Chronic (5) Gallstones ICD Codes: K80.20 - Calculus of gallbladder without cholecystitis without obstruction Status: Chronic (6) History of colon cancer ICD Codes: Z85.038 - Personal history of other malignant neoplasm of large intestine Status: Chronic Assessment and Plan 86 year old female POD1 parastomal hernia repair with mesh -Continue sips of clear liquids -Decrease IVF rate -OOB and mobilize; PT eval and treat Problem Qualifiers (1) Parastomal hernia: Qualified Codes: K43.3 - Parastomal hernia with obstruction, without gangrene Aleja Gillespie Jan 24, 2017 08:56
--- NOTE | 2017-01-24 16:16 | HHI.PR ---
Subjective Remarks Patient seen at 11:45 am Patient denies cp/sob. Tolerating clear liquid diet denies fevers/chills, diarrhea, nausea, vomiting or abdominal pain. Objective Vitals Vital Signs Date Time Temp Pulse Resp B/P (MAP) Pulse Ox O2 Delivery O2 Flow Rate FiO2 01/24/17 15:51 99.5 92 16 155/70 (98) 95 01/24/17 12:00 98.6 65 16 169/70 (103) 97 01/24/17 07:56 97.8 90 18 129/60 (83) 92 01/24/17 04:59 62 01/24/17 04:53 97.4 65 16 155/67 (96) 97 01/24/17 00:00 96.9 70 16 140/58 (85) 96 01/23/17 21:15 98 Nasal Cannula 2.00 01/23/17 20:00 96.0 63 16 106/46 (66) 97 I/O 01/23/17 01/23/17 01/23/17 01/24/17 01/24/17 01/24/17 07:00 15:00 23:00 07:00 15:00 23:00 Intake Total 679 ml 1000 ml 240 ml 360 ml Output Total 30 ml Balance 679 ml 970 ml 240 ml 360 ml Intake Oral 0 ml 240 ml IV Total 679 ml 360 ml Other 1000 ml Estimated Blood Loss 30 ml # Voids 2 4 2 Result Diagram: 01/22/17 0646 01/22/17 0646 Imaging Last Impressions Abdomen/Pelvis CT 01/20/17 2090 Signed Impressions: Service Date/Time: Friday, January 20, 2017 23:51 - CONCLUSION: 1. Abdominal wall hernia in the left lower quadrant causing gastric outlet obstruction. 2. Cholelithiasis Antoni Concepcion MD Objective Remarks AAOx3 PERRLA Clear lungs BL Abdomen is soft, tender to palpation of surgical area. Surgical incision ocvered by dressing C/D/I Procedures sp repair of peristomal hernia with Mesh. Medications and IVs Current Medications Medications (Trade) Dose Ordered Sig/Paul Route Start Time Stop Time Status Last Admin Sodium Chloride 1,000 ml @ 60 mls/hr [id number] IV 01/21/17 02:52 01/24/17 11:43 (NS Flush) 2 ml UNSCH PRN IV FLUSH 01/21/17 03:00 (NS Flush) 2 ml BID IV FLUSH 01/21/17 09:00 (Zofran Inj) 4 mg Q6H PRN IVP 01/21/17 03:00 Acetaminophen 100 ml @ 400 mls/hr Q6H PRN IV 01/21/17 03:00 (Kaity-Colace) 1 tab BID PO 01/21/17 09:00 01/24/17 07:57 (Milk Of Magnesia Liq) 30 ml Q12H PRN PO 01/21/17 03:00 (Senokot) 17.2 mg Q12H PRN PO 01/21/17 03:00 (Dulcolax Supp) 10 mg DAILY PRN RECTAL 01/21/17 03:00 (Lactulose Liq) 30 ml DAILY PRN PO 01/21/17 03:00 (Procardia) 10 mg Q8HR PO 01/21/17 09:00 01/24/17 14:01 (Prinivil) 10 mg DAILY PO 01/22/17 15:45 01/24/17 07:57 (Catapres) 0.1 mg Q6H PRN PO 01/22/17 22:30 01/22/17 23:14 Cefazolin Sodium 1000 mg/Sodium Chloride 100 ml @ 200 mls/hr COSTUME SPECIALIST IV 01/23/17 08:45 01/26/17 08:44 (Morphine Inj) 2 mg Q3H PRN IV PUSH 01/23/17 15:15 ([place] 5-325 Mg) 1 tab Q4H PRN PO 01/23/17 15:15 01/23/17 21:00 Urinary Catheter: No Vascular Central Line Catheter: No A/P Problem List: (1) Parastomal hernia ICD Code: K43.5 - Parastomal hernia without obstruction or gangrene Status: Chronic (2) Nausea ICD Code: R11.0 - Nausea (3) HTN (hypertension) ICD Code: I10 - Essential (primary) hypertension (4) Abnormal urinalysis ICD Code: R82.90 - Unspecified abnormal findings in urine (5) BRANDY (acute kidney injury) ICD Code: N17.9 - Acute kidney failure, unspecified Status: Resolved (6) Elevated lipase ICD Code: R74.8 - Abnormal levels of other serum enzymes Status: Acute Assessment and Plan (1) Parastomal hernia Plan: The patient was admitted to the medical floor, started on IV fluids and place nothing by mouth. The patient is status post parastomal hernia repair with mesh. Patient on clear liquid diet and tolerating it. Management as per general surgery. (2) Nausea Plan: Resolved. Continue Zofran IV as needed for nausea. (3) HTN (hypertension) Plan: Is to be stable today. The pressure elevated previously, however much improved after the patient also nifedipine. Continue lisinopril and nifedipine. (4) Abnormal urinalysis Plan: Urine culture concurrent with contamination. Patient is asymptomatic and white blood cell count is normal. Continue to monitor off antibiotics. (5) BRANDY (acute kidney injury) Plan: Likely due to prerenal azotemia due to dehydration. Resolved after IV fluid administration. Creatinine likely at baseline. (6) Elevated lipase Plan: Likely secondary to hernia incarceration. The patient denies nausea or abdominal pain. Continue to monitor lipase. DVT prophylaxis: SCDs, chemoprophylaxis as per general surgery. Discharge Planning Pending GS clearance. Problem Qualifiers (1) Parastomal hernia: Qualified Codes: K43.3 - Parastomal hernia with obstruction, without gangrene (2) HTN (hypertension): Qualified Codes: I10 - Essential (primary) hypertension Peter Matson MD Jan 24, 2017 16:16
[2017-01-24] MEDS: ACETAMINOPHEN/HYDROcodone 325 MG/5 MG TAB PO PRN (23:34)
[2017-01-25] VITALS (7 sets, daily range): BP systolic 134–171; BP diastolic 63–87; PULSE 76–86; RESP 14–18; TEMP 96.9–99.9; O2SAT 92–94
[2017-01-25] MEDS: SODIUM CHLOR 0.9% 1000 ML INJ 1,000 ML IV SCH (04:37)
[2017-01-25] MEDS: NIFEdipine 10 MG CAP PO SCH ×3 (06:00→21:23)
[2017-01-25 07:59] LABS: HEMATOCRIT 38.9 % (35.0-46.0); MEAN CELL VOLUME 89.9 FL (80.0-100.0); MEAN CORPUSCULAR HEMOGLOBIN 29.9 PG (27.0-34.0); MEAN CORPUSCULAR HGB CONC 33.2 % (32.0-36.0); PLATELET COUNT 221 TH/MM3 (150-450); RED BLOOD COUNT 4.33 MIL/MM3 (4.00-5.30); RED CELL DISTRIBUTION WIDTH 14.1 % (11.6-17.2); REVIEW FLAG FINAL; WHITE BLOOD COUNT 13.8 TH/MM3 (4.0-11.0)
[2017-01-25] MEDS: SODIUM CHLORIDE 0.9% FLUSH 10 ML FLUSH IV FLUSH SCH ×2 (08:19→21:23)
[2017-01-25] MEDS: LISINOPRIL 10 MG TAB PO SCH (08:20)
[2017-01-25] MEDS: DOCUSATE SODIUM 50 MG/SENNA 8.6 MG TAB PO SCH ×2 (08:20→21:23)
[2017-01-25 08:29] LABS: BICARBONATE 21.5 MEQ/L (21.0-32.0); POTASSIUM 3.3 MEQ/L (3.5-5.1)
--- NOTE | 2017-01-25 08:39 | HHI.PR ---
Subjective Subjective Notes feels fine, tolerating po, walking around with assistance, reports minimal ostomy output so far, no N/V Objective Vitals/I&O Vital Signs Date Time Temp Pulse Resp B/P (MAP) Pulse Ox O2 Delivery O2 Flow Rate FiO2 01/25/17 04:45 97.4 83 18 134/63 (86) 93 01/23/17 21:15 Nasal Cannula 2.00 Labs Laboratory Tests Test 01/25/17 07:06 White Blood Count 13.8 Red Blood Count 4.33 Hemoglobin 12.9 Hematocrit 38.9 Mean Corpuscular Volume 89.9 Mean Corpuscular Hemoglobin 29.9 Mean Corpuscular Hemoglobin Concent 33.2 Red Cell Distribution Width 14.1 Platelet Count 221 Mean Platelet Volume 9.1 Blood Urea Nitrogen 13 Creatinine 0.64 Random Glucose 123 Calcium Level 8.1 Sodium Level 141 Potassium Level 3.3 Chloride Level 108 Carbon Dioxide Level 21.5 Anion Gap 12 Estimat Glomerular Filtration Rate 88 Date/Time Source Procedure Growth Status 01/21/17 00:15 Urine Clean Catch Urine Culture - Final 10-50,000 CFU/ML MIXED GRAM POSITIVE ... Complete Radiology Last Impressions Abdomen/Pelvis CT 01/20/172214 Signed Impressions: Service Date/Time: Friday, January 20, 2017 23:51 - CONCLUSION: 1. Abdominal wall hernia in the left lower quadrant causing gastric outlet obstruction. 2. 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 (3) Gastric outlet obstruction ICD Codes: K31.1 - Adult hypertrophic pyloric stenosis Status: Acute (4) Abnormal CT of the abdomen ICD Codes: R93.5 - Abnormal findings on diagnostic imaging of other abdominal regions, including retroperitoneum Status: Chronic (5) Gallstones ICD Codes: K80.20 - Calculus of gallbladder without cholecystitis without obstruction Status: Chronic (6) History of colon cancer ICD Codes: Z85.038 - Personal history of other malignant neoplasm of large intestine Status: Chronic Assessment and Plan POD2 - large parastomal hernia advance to full liquids HL IV KCL po consider tap water enema via ostomy next 24-48 hours to get it going again. Problem Qualifiers (1) Parastomal hernia: Qualified Codes: K43.3 - Parastomal hernia with obstruction, without gangrene Marty Hoffman MD Jan 25, 2017 08:38
[2017-01-25] MEDS: POTASSIUM CHLORIDE 20 MEQ CONTROLLED RELEASE TAB PO SCH ×2 (09:36→21:23)
[2017-01-25] MEDS: MORPHINE SULFATE 2 MG/ML INJ IV PUSH PRN (14:00)
[2017-01-25] MEDS ORDERED: HYDR-3516 PO (15:51)
--- NOTE | 2017-01-25 18:48 | HHI.PR ---
Subjective Remarks Patient states that earlier had " pain everywhere which is much better after pain medication" Tolerating diet Denies sob K low Objective Vitals Vital Signs Date Time Temp Pulse Resp B/P (MAP) Pulse Ox O2 Delivery O2 Flow Rate FiO2 01/25/17 16:00 97.4 78 16 155/68 (97) 94 01/25/17 12:00 96.9 79 15 171/74 (106) 93 01/25/17 08:00 99.4 76 14 143/87 (105) 93 01/25/17 04:45 97.4 83 18 134/63 (86) 93 01/25/17 04:22 84 01/25/17 00:00 99.9 86 18 151/68 (95) 92 01/24/17 20:00 98.4 81 18 169/77 (107) 95 I/O 01/24/17 01/24/17 01/24/17 01/25/17 01/25/17 01/25/17 07:00 15:00 23:00 07:00 15:00 23:00 Intake Total 360 ml 620 ml 1000 ml 236 ml 180 ml Output Total 0 ml Balance 360 ml 620 ml 1000 ml 236 ml 180 ml Intake Oral 620 ml 180 ml IV Total 360 ml 1000 ml 236 ml Stool Total 0 ml # Voids 2 4 3 8 # Bowel Movements 0 Result Diagram: 01/25/17 0701/25/17 07 Imaging Last Impressions Abdomen/Pelvis CT 01/20/172214 Signed Impressions: Service Date/Time: Friday, January 20, 2017 23:51 - CONCLUSION: 1. Abdominal wall hernia in the left lower quadrant causing gastric outlet obstruction. 2. Cholelithiasis Antoni Concepcion MD Objective Remarks AAOx3 PERRLA Clear lungs BL Abdomen is soft, tender to palpation of surgical area. Surgical incision ocvered by dressing C/D/I Procedures sp repair of peristomal hernia with Mesh. Medications and IVs Current Medications Medications (Trade) Dose Ordered Sig/Paul Route Start Time Stop Time Status Last Admin (NS Flush) 2 ml UNSCH PRN IV FLUSH 01/21/17 03:00 (NS Flush) 2 ml BID IV FLUSH 01/21/17 09:00 (Zofran Inj) 4 mg Q6H PRN IVP 01/21/17 03:00 Acetaminophen 100 ml @ 400 mls/hr Q6H PRN IV 01/21/17 03:00 (Kaity-Colace) 1 tab BID PO 01/21/17 09:00 01/25/17 08:20 (Milk Of Magnesia Liq) 30 ml Q12H PRN PO 01/21/17 03:00 (Senokot) 17.2 mg Q12H PRN PO 01/21/17 03:00 (Dulcolax Supp) 10 mg DAILY PRN RECTAL 01/21/17 03:00 (Lactulose Liq) 30 ml DAILY PRN PO 01/21/17 03:00 (Procardia) 10 mg Q8HR PO 01/21/17 09:00 01/25/17 13:59 (Prinivil) 10 mg DAILY PO 01/22/17 15:45 01/25/17 08:20 (Catapres) 0.1 mg Q6H PRN PO 01/22/17 22:30 01/22/17 23:14 Cefazolin Sodium 1000 mg/Sodium Chloride 100 ml @ 200 mls/hr ECHO TECHNOLOGIST IV 01/23/17 08:45 01/26/17 08:44 (Morphine Inj) 2 mg Q3H PRN IV PUSH 01/23/17 15:15 01/25/17 14:00 ([place] 5-325 Mg) 1 tab Q4H PRN PO 01/23/17 15:15 01/24/17 23:34 (KCl) 20 meq Q12HR PO 01/25/17 09:00 01/25/17 09:36 A/P Problem List: (1) Parastomal hernia ICD Code: K43.5 - Parastomal hernia without obstruction or gangrene Status: Chronic (2) Nausea ICD Code: R11.0 - Nausea (3) HTN (hypertension) ICD Code: I10 - Essential (primary) hypertension (4) Abnormal urinalysis ICD Code: R82.90 - Unspecified abnormal findings in urine (5) BRANDY (acute kidney injury) ICD Code: N17.9 - Acute kidney failure, unspecified Status: Resolved (6) Elevated lipase ICD Code: R74.8 - Abnormal levels of other serum enzymes Status: Acute Assessment and Plan (1) Parastomal hernia Plan: The patient was admitted to the medical floor, started on IV fluids and place nothing by mouth. The patient is status post parastomal hernia repair with mesh. Patient on clear liquid diet and tolerating it. Management as per general surgery. 01/25 diet advanced to full liquid diet. (2) Nausea Plan: Resolved. Continue Zofran IV as needed for nausea. (3) HTN (hypertension) Plan: Is to be stable today. The pressure elevated previously, however much improved after the patient also nifedipine. Continue lisinopril and nifedipine. (4) Abnormal urinalysis Plan: Urine culture concurrent with contamination. Patient is asymptomatic and white blood cell count is normal. Continue to monitor off antibiotics. (5) BRANDY (acute kidney injury) Plan: Likely due to prerenal azotemia due to dehydration. Resolved after IV fluid administration. Creatinine likely at baseline. (6) Elevated lipase Plan: Likely secondary to hernia incarceration. The patient denies nausea or abdominal pain. Continue to monitor lipase. DVT prophylaxis: SCDs, chemoprophylaxis as per general surgery. Discharge Planning Pending GS clearance. Problem Qualifiers (1) Parastomal hernia: Qualified Codes: K43.3 - Parastomal hernia with obstruction, without gangrene (2) HTN (hypertension): Qualified Codes: I10 - Essential (primary) hypertension Peter Matson MD Jan 25, 2017 18:48
--- NOTE | 2017-01-25 18:49 | HHI.FF ---
Face to Face Verification Diagnosis: (1) Parastomal hernia (2) HTN (hypertension) Physical Therapy Order: Improve ambulation, Strength and gait training Home Health Nursing Order: Wound care and dressing changes Nursing assessment with vital signs I have seen patient Tequila Mejias on 01/25/17. My clinical findings support the need for the requested home health care services because: Limited ability to care for self Need for psychosocial assistance I certify that my clinical findings support that this patient is homebound because: Unsafe to leave home unassisted Unable to use public transportation Peter Matson MD Jan 25, 2017 18:49
[2017-01-25] MEDS: ONDANSETRON HCL 4 MG/2 ML VIAL IVP PRN (23:36)
[2017-01-26 00:44] VITALS: BP 150/68; PULSE 73; RESP 18; TEMP 98.1; O2SAT 96
--- NOTE | 2017-01-26 03:18 | RADRPT ---
EXAM DATE/TIME: 01/26/2017 02:44 [place] COMPARISON: No previous studies available for comparison. INDICATIONS : Abdominal pain. Vomiting. MEDICAL HISTORY : Arthritis. Cardiovascular disease Hypertension. SURGICAL HISTORY : Colon resection. Mastectomy, left.Appendectomy. ENCOUNTER: Initial ACUITY: 1 day PAIN SCORE: 0/10 LOCATION: abdomen. FINDINGS: Supine view of the abdomen was performed. There are numerous loops of air-filled small bowel througho ut the abdomen, some of which are dilated measuring up to 3.9 cm across. The there is some air in the colon. No abnormal masses, calcifications, or organomegaly is seen. The osseous structures are unr emarkable except for sclerosis of the right SI joint. CONCLUSION: Air-filled distended loops of bowel throughout the abdomen. Cutaneous ale suggest recent abdomina l incision Connor Grossman MD on January 26, 2017 at 3:16 Board Certified Radiologist. This report was verified electronically.
[2017-01-26] MEDS: NIFEdipine 10 MG CAP PO SCH ×3 (05:29→21:11)
[2017-01-26] MEDS: ONDANSETRON HCL 4 MG/2 ML VIAL IVP PRN (06:41)
[2017-01-26 08:00] VITALS: BP 139/71; PULSE 89; RESP 17; TEMP 97; O2SAT 95
[2017-01-26] MEDS ORDERED: SODIUM CHLOR 0.9% 1000 ML INJ 1,000 ML IV SCH (10:30)
[2017-01-26] MEDS ORDERED: SOD PHOSPHATE/SOD BIPHOSPHATE (ADULT) ENEMA 133ML RECTAL ONE (11:00)
[2017-01-26] MEDS: POTASSIUM CHLORIDE 20 MEQ CONTROLLED RELEASE TAB PO SCH ×2 (11:44→21:11)
[2017-01-26] MEDS: LISINOPRIL 10 MG TAB PO SCH (11:45)
[2017-01-26] MEDS: DOCUSATE SODIUM 50 MG/SENNA 8.6 MG TAB PO SCH ×2 (11:46→21:11)
[2017-01-26] MEDS: SODIUM CHLORIDE 0.9% FLUSH 10 ML FLUSH IV FLUSH SCH ×2 (11:46→21:12)
[2017-01-26 12:00] VITALS: BP 170/70; PULSE 97; RESP 16; TEMP 97.4; O2SAT 95
--- NOTE | 2017-01-26 12:26 | HHI.PR ---
Subjective Subjective Notes Sitting on the side of the bed With nausea and vomiting overnight Objective Vitals/I&O Vital Signs Date Time Temp Pulse Resp B/P (MAP) Pulse Ox O2 Delivery O2 Flow Rate FiO2 01/26/17 08:00 97.0 89 17 139/71 (93) 95 01/25/17 21:30 21 01/23/17 21:15 Nasal Cannula 2.00 Labs Date/Time Source Procedure Growth Status 01/21/17 00:15 Urine Clean Catch Urine Culture - Final 10-50,000 CFU/ML MIXED GRAM POSITIVE ... Complete Radiology Last Impressions Abdomen/Pelvis CT 01/20/175 Signed Impressions: Service Date/Time: Friday, January 20, 2017 23:51 - CONCLUSION: 1. Abdominal wall hernia in the left lower quadrant causing gastric outlet obstruction. 2. 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 (3) Gastric outlet obstruction ICD Codes: K31.1 - Adult hypertrophic pyloric stenosis Status: Acute (4) Abnormal CT of the abdomen ICD Codes: R93.5 - Abnormal findings on diagnostic imaging of other abdominal regions, including retroperitoneum Status: Chronic (5) Gallstones ICD Codes: K80.20 - Calculus of gallbladder without cholecystitis without obstruction Status: Chronic (6) History of colon cancer ICD Codes: Z85.038 - Personal history of other malignant neoplasm of large intestine Status: Chronic Assessment and Plan 86 year old female POD3 parastomal hernia repair with mesh -NPO; okay for ice and popsicles as tolerated -OOB and mobilize -Restart IVF for gentle hydration -Tap water enema through ostomy -Zofran PRN Problem Qualifiers (1) Parastomal hernia: Qualified Codes: K43.3 - Parastomal hernia with obstruction, without gangrene Aleja Gillespie. [facility] Jan 26, 2017 12:26
[2017-01-26 13:11] LABS: AUTOMATED NEUTROPHIL # 7.6 TH/MM3 (1.8-7.7); BASOPHIL % 0.3 % (0.0-2.0); HEMATOCRIT 44.5 % (35.0-46.0); HEMO FLAGS DIFF FINAL; LYMPH % 5.2 % (9.0-44.0); LYMPHOCYTE # 0.5 TH/MM3 (1.0-4.8); MEAN CORPUSCULAR HEMOGLOBIN 30.2 PG (27.0-34.0); MONO % 8.1 % (0.0-8.0); NEUT % 86.4 % (16.0-70.0); PLATELET COUNT 227 TH/MM3 (150-450); RED CELL DISTRIBUTION WIDTH 13.8 % (11.6-17.2); WHITE BLOOD COUNT 8.8 TH/MM3 (4.0-11.0)
[2017-01-26 13:37] LABS: ALT (GPT) 11 U/L (10-53); ANION GAP 10 MEQ/L (5-15); AST (GOT) 21 U/L (15-37); BICARBONATE 26.6 MEQ/L (21.0-32.0); BLOOD UREA NITROGEN 20 MG/DL (7-18); CHLORIDE 103 MEQ/L (98-107); GLOMERULAR FILTRATION RATE 63 ML/MIN (>89); POTASSIUM 3.6 MEQ/L (3.5-5.1); SODIUM (NA) 140 MEQ/L (136-145)
[2017-01-26 13:42] LABS: ALKALINE PHOSPHATASE 57 U/L (45-117)
[2017-01-26 16:00] VITALS: BP 164/80; PULSE 70; RESP 17; TEMP 97.2; O2SAT 97
--- NOTE | 2017-01-26 16:57 | HHI.PR ---
Subjective Remarks as per RN patient nauseous last night denies abdominal pain, nausea or vomiting. Objective Vitals Vital Signs Date Time Temp Pulse Resp B/P (MAP) Pulse Ox O2 Delivery O2 Flow Rate FiO2 01/26/17 16:00 97.2 70 17 164/80 (108) 97 01/26/17 12:00 97.4 97 16 170/70 (103) 95 01/26/17 08:00 97.0 89 17 139/71 (93) 95 01/26/17 00:44 98.1 73 18 150/68 (95) 96 01/25/17 21:30 21 01/25/17 20:00 83 I/O 01/25/17 01/25/17 01/25/17 01/26/17 01/26/17 01/26/17 07:00 15:00 23:00 07:00 15:00 23:00 Intake Total 1000 ml 236 ml 180 ml 480 ml Output Total 120 ml 905 ml Balance 1000 ml 236 ml 60 ml -425 ml Intake Oral 180 ml 480 ml IV Total 1000 ml 236 ml Output Urine Total 675 ml Emesis 120 ml 230 ml # Voids 3 8 3 # Bowel Movements 0 Result Diagram: 01/26/17 1233 01/26/17 1233 Imaging Last Impressions Abdomen X-Ray 01/26/17 0210 Signed Impressions: Service Date/Time: January 02:44 - CONCLUSION: Air- filled distended loops of bowel throughout the abdomen. Cutaneous ale suggest recent abdominal incision Connor Grossman MD Abdomen/Pelvis CT 01/20/17 4331 Signed Impressions: Service Date/Time: Friday, January 20, 2017 23:51 - CONCLUSION: 1. Abdominal wall hernia in the left lower quadrant causing gastric outlet obstruction. 2. Cholelithiasis Antoni Concepcion MD Objective Remarks AAOx3 PERRLA Clear lungs BL Abdomen is soft, tender to palpation of surgical area. Surgical incision covered by dressing C/D/I no edema in lower extremities Procedures sp repair of peristomal hernia with Mesh. Medications and IVs Current Medications Medications (Trade) Dose Ordered Sig/Paul Route Start Time Stop Time Status Last Admin (NS Flush) 2 ml UNSCH PRN IV FLUSH 01/21/17 03:00 (NS Flush) 2 ml BID IV FLUSH 01/21/17 09:00 01/26/17 11:46 (Zofran Inj) 4 mg Q6H PRN IVP 01/21/17 03:00 01/26/17 06:41 Acetaminophen 100 ml @ 400 mls/hr Q6H PRN IV 01/21/17 03:00 (Kaity-Colace) 1 tab BID PO 01/21/17 09:00 01/26/17 11:46 (Milk Of Magnesia Liq) 30 ml Q12H PRN PO 01/21/17 03:00 (Senokot) 17.2 mg Q12H PRN PO 01/21/17 03:00 (Dulcolax Supp) 10 mg DAILY PRN RECTAL 01/21/17 03:00 (Lactulose Liq) 30 ml DAILY PRN PO 01/21/17 03:00 (Procardia) 10 mg Q8HR PO 01/21/17 09:00 01/26/17 15:45 (Prinivil) 10 mg DAILY PO 01/22/17 15:45 01/26/17 11:45 (Catapres) 0.1 mg Q6H PRN PO 01/22/17 22:30 01/22/17 23:14 (Morphine Inj) 2 mg Q3H PRN IV PUSH 01/23/17 15:15 01/25/17 14:00 ([place] 5-325 Mg) 1 tab Q4H PRN PO 01/23/17 15:15 01/24/17 23:34 (KCl) 20 meq Q12HR PO 01/25/17 09:00 01/26/17 11:44 Sodium Chloride 1,000 ml @ 42 mls/hr [id number] IV 01/26/17 10:30 01/26/17 11:45 A/P Problem List: (1) Parastomal hernia ICD Code: K43.5 - Parastomal hernia without obstruction or gangrene Status: Chronic (2) Nausea ICD Code: R11.0 - Nausea (3) HTN (hypertension) ICD Code: I10 - Essential (primary) hypertension (4) Abnormal urinalysis ICD Code: R82.90 - Unspecified abnormal findings in urine (5) BRANDY (acute kidney injury) ICD Code: N17.9 - Acute kidney failure, unspecified Status: Resolved (6) Elevated lipase ICD Code: R74.8 - Abnormal levels of other serum enzymes Status: Acute Assessment and Plan (1) Parastomal hernia Plan: The patient was admitted to the medical floor, started on IV fluids and place nothing by mouth. The patient is status post parastomal hernia repair with mesh. Patient on clear liquid diet and tolerating it. Management as per general surgery. 01/25 diet advanced to full liquid diet. 01/26 Patient did not tolerate diet overnight. Management as per recommendations as below. -NPO; okay for ice and popsicles as tolerated -OOB and mobilize -Restart IVF for gentle hydration -Tap water enema through ostomy (2) Nausea Plan: Resolved. Continue Zofran IV as needed for nausea. (3) HTN (hypertension) Plan: Is to be stable today. The pressure elevated previously, however much improved after the patient also nifedipine. Continue lisinopril and nifedipine. (4) Abnormal urinalysis Plan: Urine culture concurrent with contamination. Patient is asymptomatic and white blood cell count is normal. Continue to monitor off antibiotics. (5) BRANDY (acute kidney injury) Plan: Likely due to prerenal azotemia due to dehydration. Resolved after IV fluid administration. Creatinine likely at baseline. (6) Elevated lipase Plan: Likely secondary to hernia incarceration. The patient denies nausea or abdominal pain. Continue to monitor lipase. DVT prophylaxis: SCDs, chemoprophylaxis as per general surgery. Discharge Planning Pending clinical improvement. Patient did not tolerate diet. Needs clearance. Problem Qualifiers (1) Parastomal hernia: Qualified Codes: K43.3 - Parastomal hernia with obstruction, without gangrene (2) HTN (hypertension): Qualified Codes: I10 - Essential (primary) hypertension Peter Matson MD Jan 26, 2017 16:57
[2017-01-26 20:00] VITALS: BP 148/63; PULSE 87; RESP 17; TEMP 95.6; O2SAT 93
[2017-01-26] MEDS: ACETAMINOPHEN/HYDROcodone 325 MG/5 MG TAB PO PRN (21:11)
[2017-01-27] VITALS (8 sets, daily range): BP systolic 116–177; BP diastolic 52–79; PULSE 73–99; RESP 16–20; TEMP 95.7–97.6; O2SAT 92–94
[2017-01-27] MEDS: NIFEdipine 10 MG CAP PO SCH ×3 (05:23→19:57)
[2017-01-27 09:15] LABS: AUTOMATED NEUTROPHIL # 5.3 TH/MM3 (1.8-7.7); BASOPHIL % 0.1 % (0.0-2.0); EOSINOPHIL # 0.1 TH/MM3 (0-0.4); EOSINOPHIL % 1.3 % (0.0-4.0); HEMATOCRIT 38.9 % (35.0-46.0); HEMO FLAGS DIFF FINAL; LYMPH % 11.9 % (9.0-44.0); LYMPHOCYTE # 0.8 TH/MM3 (1.0-4.8); MEAN CELL VOLUME 90.3 FL (80.0-100.0); MEAN CORPUSCULAR HEMOGLOBIN 30.7 PG (27.0-34.0); MONO % 11.6 % (0.0-8.0); NEUT % 75.1 % (16.0-70.0); PLATELET COUNT 259 TH/MM3 (150-450); RED BLOOD COUNT 4.31 MIL/MM3 (4.00-5.30); RED CELL DISTRIBUTION WIDTH 13.9 % (11.6-17.2)
[2017-01-27 09:22] LABS: ANION GAP 10 MEQ/L (5-15); AST (GOT) 16 U/L (15-37); BICARBONATE 25.3 MEQ/L (21.0-32.0); BLOOD UREA NITROGEN 24 MG/DL (7-18); CHLORIDE 109 MEQ/L (98-107); POTASSIUM 3.5 MEQ/L (3.5-5.1); SODIUM (NA) 144 MEQ/L (136-145)
[2017-01-27 09:25] LABS: ALT (GPT) 15 U/L (10-53); GLOMERULAR FILTRATION RATE 71 ML/MIN (>89); TOTAL BILIRUBIN ADULT 0.8 MG/DL (0.2-1.0)
[2017-01-27 09:26] LABS: ALKALINE PHOSPHATASE 50 U/L (45-117)
--- NOTE | 2017-01-27 10:08 | HHI.PR ---
Subjective Subjective Notes "I feel like a new woman!" No nausea/vomiting overnight Objective Vitals/I&O Vital Signs Date Time Temp Pulse Resp B/P (MAP) Pulse Ox O2 Delivery O2 Flow Rate FiO2 01/27/17 07:30 96.7 77 16 116/57 (76) 92 01/25/17 21:30 21 01/23/17 21:15 Nasal Cannula 2.00 Labs Laboratory Tests Test 01/26/17 12:33 01/27/17 08:33 White Blood Count 8.8 7.0 Red Blood Count 5.00 4.31 Hemoglobin 15.1 13.2 Hematocrit 44.5 38.9 Mean Corpuscular Volume 89.0 90.3 Mean Corpuscular Hemoglobin 30.2 30.7 Mean Corpuscular Hemoglobin Concent 34.0 34.0 Red Cell Distribution Width 13.8 13.9 Platelet Count 227 259 Mean Platelet Volume 9.4 9.2 Neutrophils (%) (Auto) 86.4 75.1 Lymphocytes (%) (Auto) 5.2 11.9 Monocytes (%) (Auto) 8.1 11.6 Eosinophils (%) (Auto) 0.0 1.3 Basophils (%) (Auto) 0.3 0.1 Neutrophils # (Auto) 7.6 5.3 Lymphocytes # (Auto) 0.5 0.8 Monocytes # (Auto) 0.7 0.8 Eosinophils # (Auto) 0.0 0.1 Basophils # (Auto) 0.0 0.0 CBC Comment DIFF FINAL DIFF FINAL Differential Comment Hematology Comments Blood Urea Nitrogen 20 24 Creatinine 0.85 0.77 Random Glucose 153 115 Total Protein 6.9 6.6 Albumin 2.9 2.7 Calcium Level 8.9 8.4 Alkaline Phosphatase 57 50 Aspartate Amino Transf (AST/SGOT) 21 16 Alanine Aminotransferase (ALT/SGPT) 11 15 Total Bilirubin 1.0 0.8 Sodium Level 140 144 Potassium Level 3.6 3.5 Chloride Level 103 109 Carbon Dioxide Level 26.6 25.3 Anion Gap 10 10 Estimat Glomerular Filtration Rate 63 71 Date/Time Source Procedure Growth Status 01/21/17 00:15 Urine Clean Catch Urine Culture - Final 10-50,000 CFU/ML MIXED GRAM POSITIVE ... Complete Radiology Last Impressions Abdomen/Pelvis CT 01/20/17 3455 Signed Impressions: Service Date/Time: Friday, January 20, 2017 23:51 - CONCLUSION: 1. Abdominal wall hernia in the left lower quadrant causing gastric outlet obstruction. 2. 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 (3) Gastric outlet obstruction ICD Codes: K31.1 - Adult hypertrophic pyloric stenosis Status: Acute (4) Abnormal CT of the abdomen ICD Codes: R93.5 - Abnormal findings on diagnostic imaging of other abdominal regions, including retroperitoneum Status: Chronic (5) Gallstones ICD Codes: K80.20 - Calculus of gallbladder without cholecystitis without obstruction Status: Chronic (6) History of colon cancer ICD Codes: Z85.038 - Personal history of other malignant neoplasm of large intestine Status: Chronic Assessment and Plan 86 year old female POD4 parastomal hernia repair with mesh -Start full liquids -DC IVF -OOB and mobilize -Zofran PRN -Rehab vs [facility] Problem Qualifiers (1) Parastomal hernia: Qualified Codes: K43.3 - Parastomal hernia with obstruction, without gangrene Aleja Gillespie Jan 27, 2017 10:08
[2017-01-27] MEDS: DOCUSATE SODIUM 50 MG/SENNA 8.6 MG TAB PO SCH ×2 (10:43→19:57)
[2017-01-27] MEDS: LISINOPRIL 10 MG TAB PO SCH (10:47)
[2017-01-27] MEDS: POTASSIUM CHLORIDE 20 MEQ CONTROLLED RELEASE TAB PO SCH ×2 (10:48→19:57)
[2017-01-27] MEDS: SODIUM CHLORIDE 0.9% FLUSH 10 ML FLUSH IV FLUSH SCH ×2 (10:51→19:57)
[2017-01-27] MEDS: ONDANSETRON HCL 4 MG/2 ML VIAL IVP PRN ×2 (11:00→20:08)
--- NOTE | 2017-01-27 16:16 | HHI.PR ---
Subjective Remarks As per RN report patient nauseous denies cp/sob stable vital signs afebrile Objective Vitals Vital Signs Date Time Temp Pulse Resp B/P (MAP) Pulse Ox O2 Delivery O2 Flow Rate FiO2 01/27/17 15:29 73 01/27/17 11:30 97.0 89 16 139/52 (81) 94 01/27/17 07:30 96.7 77 16 116/57 (76) 92 01/27/17 04:00 95.7 84 17 129/64 (85) 94 01/27/17 00:00 96.6 89 18 134/69 (90) 93 01/26/17 20:00 87 01/26/17 20:00 95.6 87 17 148/63 (91) 93 I/O 01/26/17 01/26/17 01/26/17 01/27/17 01/27/17 01/27/17 07:00 15:00 23:00 07:00 15:00 23:00 Intake Total 480 ml 480 ml 603 ml Output Total 905 ml 650 ml Balance -425 ml -170 ml 603 ml Intake Oral 480 ml 480 ml IV Total 603 ml Output Urine Total 675 ml Stool Total 650 ml Emesis 230 ml # Voids 3 2 1 # Bowel Movements 4 Result Diagram: 01/27/1783201/27/17832 Objective Remarks AAOx3 PERRLA Clear lungs BL Abdomen is soft, tender to palpation of surgical area. Surgical incision covered by dressing C/D/I no edema in lower extremities Procedures sp repair of peristomal hernia with Mesh. A/P Problem List: (1) Parastomal hernia ICD Code: K43.5 - Parastomal hernia without obstruction or gangrene Status: Chronic (2) Nausea ICD Code: R11.0 - Nausea (3) HTN (hypertension) ICD Code: I10 - Essential (primary) hypertension (4) Abnormal urinalysis ICD Code: R82.90 - Unspecified abnormal findings in urine (5) BRANDY (acute kidney injury) ICD Code: N17.9 - Acute kidney failure, unspecified Status: Resolved (6) Elevated lipase ICD Code: R74.8 - Abnormal levels of other serum enzymes Status: Acute Assessment and Plan (1) Parastomal hernia Plan: The patient was admitted to the medical floor, started on IV fluids and place nothing by mouth. The patient is status post parastomal hernia repair with mesh. Patient on clear liquid diet and tolerating it. Management as per general surgery. 01/25 diet advanced to full liquid diet. 01/26 Patient did not tolerate diet overnight. Management as per recommendations as below. Patient made npo. 01/27 discussed case with GS, patient advanced to full liquid diet but still slightly nauseous. Surgery wants to continue full liquid diet. (2) Nausea Plan: Continue Zofran IV as needed for nausea. Patient with nausea after resuming diet. (3) HTN (hypertension) Plan: Is to be stable today. The pressure elevated previously, however much improved after the patient also nifedipine. Continue lisinopril and nifedipine. (4) Abnormal urinalysis Plan: Urine culture concurrent with contamination. Patient is asymptomatic and white blood cell count is normal. Off antibiotics. 01/27 Given that patient is nauseous, will recheck urinalysis. (5) BRANDY (acute kidney injury) Plan: Likely due to prerenal azotemia due to dehydration. Resolved after IV fluid administration. Creatinine likely at baseline. (6) Elevated lipase Plan: Likely secondary to hernia incarceration. The patient denies nausea or abdominal pain. Continue to monitor lipase. DVT prophylaxis: SCDs, chemoprophylaxis as per general surgery. Discharge Planning Pending clinical improvement. Patient did not tolerate diet. Needs GS clearance. Problem Qualifiers (1) Parastomal hernia: Qualified Codes: K43.3 - Parastomal hernia with obstruction, without gangrene (2) HTN (hypertension): Qualified Codes: I10 - Essential (primary) hypertension Peter Matson MD Jan 27, 2017 16:16
[2017-01-28] VITALS (7 sets, daily range): BP systolic 124–177; BP diastolic 49–81; PULSE 75–96; RESP 17–20; TEMP 95.2–97.4; O2SAT 92–96
[2017-01-28] MEDS: NIFEdipine 10 MG CAP PO SCH ×3 (05:36→21:03)
[2017-01-28] MEDS: ONDANSETRON HCL 4 MG/2 ML VIAL IVP PRN ×2 (05:36→12:50)
[2017-01-28 07:01] LABS: BLOOD, URINE NEG (NEG); GLUCOSE,URINE NEG (NEG); KETONE, URINE TRACE mg/dL (NEG); NITRITE,URINE NEG (NEG); PH, URINE 7.5 (5.0-8.5); URINE COLOR YELLOW (YELLW/STRAW)
[2017-01-28 07:36] LABS: COMMENT (UR) CULT NOT INDICATED; CULTURE IF INDICATED CULT NOT INDICATED; WBC, URINE 0-2 /hpf (0-5)
[2017-01-28] MEDS: LISINOPRIL 10 MG TAB PO SCH (08:07)
[2017-01-28] MEDS: POTASSIUM CHLORIDE 20 MEQ CONTROLLED RELEASE TAB PO SCH ×2 (08:07→21:03)
[2017-01-28] MEDS: DOCUSATE SODIUM 50 MG/SENNA 8.6 MG TAB PO SCH ×2 (08:07→21:03)
[2017-01-28] MEDS: SODIUM CHLORIDE 0.9% FLUSH 10 ML FLUSH IV FLUSH SCH ×2 (08:09→21:04)
[2017-01-28 11:47] LABS: BICARBONATE 27.9 MEQ/L (21.0-32.0); POTASSIUM 3.5 MEQ/L (3.5-5.1)
[2017-01-28] MEDS: ACETAMINOPHEN/HYDROcodone 325 MG/5 MG TAB PO PRN (12:51)
[2017-01-28] MEDS: SODIUM CHLOR 0.9% 1000 ML INJ 1,000 ML IV SCH (16:30)
--- NOTE | 2017-01-28 16:47 | HHI.PR ---
Subjective Remarks patient c/o nausea and vomiting. no abdominal pain at this moment. creatinine slightly elevated Objective Vitals Vital Signs Date Time Temp Pulse Resp B/P (MAP) Pulse Ox O2 Delivery O2 Flow Rate FiO2 01/28/17 12:00 97.4 76 20 177/81 (113) 95 01/28/17 08:00 96.1 89 18 126/58 (80) 92 01/28/17 08:00 89 01/28/17 04:00 95.2 92 20 144/65 (91) 94 01/28/17 00:00 97.0 96 20 124/49 (74) 96 01/27/17 20:00 96.8 88 20 177/79 (111) 93 01/27/17 19:51 99 I/O 01/27/17 01/27/17 01/27/17 01/28/17 01/28/17 01/28/17 07:00 15:00 23:00 07:00 15:00 23:00 Intake Total 603 ml 930 ml 240 ml Output Total 250 ml 650 ml Balance 603 ml 680 ml -410 ml Intake Oral 930 ml 240 ml IV Total 603 ml Output Urine Total 250 ml 400 ml Stool Total 250 ml # Voids 1 4 Result Diagram: 01/27/17 0833 01/28/17 1029 Imaging Last Impressions Abdomen X-Ray 01/26/17 0210 Signed Impressions: Service Date/Time: January 02:44 - CONCLUSION: Air- filled distended loops of bowel throughout the abdomen. Cutaneous ale suggest recent abdominal incision Connor Grossman MD Abdomen/Pelvis CT 01/20/17 4467 Signed Impressions: Service Date/Time: Friday, January 20, 2017 23:51 - CONCLUSION: 1. Abdominal wall hernia in the left lower quadrant causing gastric outlet obstruction. 2. Cholelithiasis Antoni Concepcion MD Objective Remarks AAOx3 PERRLA Clear lungs BL Abdomen is soft, tender to palpation of surgical area. Surgical incision covered by dressing C/D/I no edema in lower extremities Procedures sp repair of peristomal hernia with Mesh. Medications and IVs Current Medications Medications (Trade) Dose Ordered Sig/Paul Route Start Time Stop Time Status Last Admin (NS Flush) 2 ml UNSCH PRN IV FLUSH 01/21/17 03:00 (NS Flush) 2 ml BID IV FLUSH 01/21/17 09:00 01/28/17 08:09 (Zofran Inj) 4 mg Q6H PRN IVP 01/21/17 03:00 01/28/17 12:50 Acetaminophen 100 ml @ 400 mls/hr Q6H PRN IV 01/21/17 03:00 (Kaity-Colace) 1 tab BID PO 01/21/17 09:00 01/28/17 08:07 (Milk Of Magnesia Liq) 30 ml Q12H PRN PO 01/21/17 03:00 (Senokot) 17.2 mg Q12H PRN PO 01/21/17 03:00 (Dulcolax Supp) 10 mg DAILY PRN RECTAL 01/21/17 03:00 (Lactulose Liq) 30 ml DAILY PRN PO 01/21/17 03:00 (Procardia) 10 mg Q8HR PO 01/21/17 09:00 01/28/17 12:55 (Prinivil) 10 mg DAILY PO 01/22/17 15:45 01/28/17 08:07 (Catapres) 0.1 mg Q6H PRN PO 01/22/17 22:30 01/22/17 23:14 (Morphine Inj) 2 mg Q3H PRN IV PUSH 01/23/17 15:15 01/25/17 14:00 ([place] 5-325 Mg) 1 tab Q4H PRN PO 01/23/17 15:15 01/28/17 12:51 (KCl) 20 meq Q12HR PO 01/25/17 09:00 01/28/17 08:07 Sodium Chloride 1,000 ml @ 84 mls/hr [id number] IV 01/28/17 16:30 A/P Problem List: (1) Parastomal hernia ICD Code: K43.5 - Parastomal hernia without obstruction or gangrene Status: Chronic (2) Nausea ICD Code: R11.0 - Nausea (3) HTN (hypertension) ICD Code: I10 - Essential (primary) hypertension (4) Abnormal urinalysis ICD Code: R82.90 - Unspecified abnormal findings in urine (5) BRANDY (acute kidney injury) ICD Code: N17.9 - Acute kidney failure, unspecified Status: Resolved (6) Elevated lipase ICD Code: R74.8 - Abnormal levels of other serum enzymes Status: Acute Assessment and Plan (1) Parastomal hernia Plan: The patient was admitted to the medical floor, started on IV fluids and place nothing by mouth. The patient is status post parastomal hernia repair with mesh. Patient on clear liquid diet and tolerating it. Management as per general surgery. 01/25 diet advanced to full liquid diet. 01/26 Patient did not tolerate diet overnight. Management as per recommendations as below. Patient made npo. 01/27 discussed case with GS, patient advanced to full liquid diet but still slightly nauseous. Surgery wants to continue full liquid diet. 01/28 Patient with some nausea and vomiting. Continue management as per . (2) Nausea Plan: Continue Zofran IV as needed for nausea. Patient with nausea after resuming diet. (3) HTN (hypertension) Plan: Is to be stable today. The pressure elevated previously, however much improved after the patient also nifedipine. Continue lisinopril and nifedipine. (4) Abnormal urinalysis Plan: Urine culture concurrent with contamination. Patient is asymptomatic and white blood cell count is normal. Off antibiotics. 01/27 Given that patient is nauseous, will recheck urinalysis. 01/28 repeat ua negative. (5) BRANDY (acute kidney injury) Plan: Likely due to prerenal azotemia due to dehydration. Resolved after IV fluid administration. Creatinine likely at baseline. 01/28 Creatinine slightly elevated likely due to prerenal azotemia from decreased oral intake. Will start on Normal saline at 84 cc an hour and monitor BUN and creatinine. (6) Elevated lipase Plan: Likely secondary to hernia incarceration. The patient denies nausea or abdominal pain. Continue to monitor lipase. DVT prophylaxis: SCDs, chemoprophylaxis as per general surgery. Discharge Planning Pending clinical improvement. Patient did not tolerate diet. Needs clearance. Problem Qualifiers (1) Parastomal hernia: Qualified Codes: K43.3 - Parastomal hernia with obstruction, without gangrene (2) HTN (hypertension): Qualified Codes: I10 - Essential (primary) hypertension Peter Matson MD Jan 28, 2017 16:47
--- NOTE | 2017-01-28 17:41 | HHI.PR ---
Subjective Subjective Notes Daughter at bedside. Patient reports colostomy now functioning. Tolerating diet. Objective Vitals/I&O Vital Signs Date Time Temp Pulse Resp B/P (MAP) Pulse Ox O2 Delivery O2 Flow Rate FiO2 01/28/17 16:00 96.0 94 18 143/70 (94) 95 01/25/17 21:30 21 Labs Laboratory Tests Test 01/28/17 06:30 01/28/17 10:29 Urine Color YELLOW Urine Turbidity CLEAR Urine pH 7.5 Urine Specific [place] 1.012 Urine Protein TRACE Urine Glucose (UA) NEG Urine Ketones TRACE Urine Occult Blood NEG Urine Nitrite NEG Urine Bilirubin NEG Urine Urobilinogen LESS THAN 2.0 Urine Leukocyte Esterase NEG Urine WBC 0-2 Microscopic Urinalysis Comment CULT NOT INDICATED Blood Urea Nitrogen 26 Creatinine 1.08 Random Glucose 166 Calcium Level 8.5 Sodium Level 142 Potassium Level 3.5 Chloride Level 107 Carbon Dioxide Level 27.9 Anion Gap 7 Estimat Glomerular Filtration Rate 48 Date/Time Source Procedure Growth Status 01/21/17 00:15 Urine Clean Catch Urine Culture - Final 10-50,000 CFU/ML MIXED GRAM POSITIVE ... Complete Radiology Last Impressions Abdomen/Pelvis CT 01/20/172214 Signed Impressions: Service Date/Time: Friday, January 20, 2017 23:51 - CONCLUSION: 1. Abdominal wall hernia in the left lower quadrant causing gastric outlet obstruction. 2. Cholelithiasis Antoni Concepcion MD Lungs: Clear Abdomen: Non-distended, Non-tender Narrative Exam Dressing with minimal drainage; colostomy appliance intact. 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 (3) Gastric outlet obstruction ICD Codes: K31.1 - Adult hypertrophic pyloric stenosis Status: Acute (4) Abnormal CT of the abdomen ICD Codes: R93.5 - Abnormal findings on diagnostic imaging of other abdominal regions, including retroperitoneum Status: Chronic (5) Gallstones ICD Codes: K80.20 - Calculus of gallbladder without cholecystitis without obstruction Status: Chronic (6) History of colon cancer ICD Codes: Z85.038 - Personal history of other malignant neoplasm of large intestine Status: Chronic Assessment and Plan 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 (3) Gastric outlet obstruction ICD Codes: K31.1 - Adult hypertrophic pyloric stenosis Status: Acute (4) Abnormal CT of the abdomen ICD Codes: R93.5 - Abnormal findings on diagnostic imaging of other abdominal regions, including retroperitoneum Status: Chronic (5) Gallstones ICD Codes: K80.20 - Calculus of gallbladder without cholecystitis without obstruction Status: Chronic (6) History of colon cancer ICD Codes: Z85.038 - Personal history of other malignant neoplasm of large intestine Status: Chronic Assessment and Plan 86 year old female POD5 parastomal hernia repair with mesh -Advance diet -OOB and mobilize -Zofran PRN -Rehab vs [facility]; likely [facility]; patient and daughter amenable to this. Problem Qualifiers (1) Parastomal hernia: Qualified Codes: K43.3 - Parastomal hernia with obstruction, without gangrene Dwayne Palomino MD Jan 28, 2017 17:41
[2017-01-29] VITALS (7 sets, daily range): BP systolic 124–154; BP diastolic 61–77; PULSE 73–97; RESP 17–33; TEMP 96.4–98.6; O2SAT 87–96
[2017-01-29] MEDS: SODIUM CHLOR 0.9% 1000 ML INJ 1,000 ML IV SCH (04:39)
[2017-01-29] MEDS: NIFEdipine 10 MG CAP PO SCH ×3 (05:12→20:35)
[2017-01-29 07:11] LABS: BICARBONATE 27.4 MEQ/L (21.0-32.0); POTASSIUM 3.3 MEQ/L (3.5-5.1)
[2017-01-29] MEDS: DOCUSATE SODIUM 50 MG/SENNA 8.6 MG TAB PO SCH ×2 (08:36→20:35)
[2017-01-29] MEDS: LISINOPRIL 10 MG TAB PO SCH (08:36)
[2017-01-29] MEDS: POTASSIUM CHLORIDE 20 MEQ CONTROLLED RELEASE TAB PO SCH ×2 (08:36→20:35)
[2017-01-29] MEDS ORDERED: POTASSIUM CHLORIDE 10 MEQ CONTROLLED RELEASE TAB PO ONE (09:00)
--- NOTE | 2017-01-29 11:24 | HHI.PR ---
Subjective Subjective Notes feels fine, 1 episode of emesis yesterday when she drank a soda, ostomy working well per pt and RN Objective Vitals/I&O Vital Signs Date Time Temp Pulse Resp B/P (MAP) Pulse Ox O2 Delivery O2 Flow Rate FiO2 01/29/17 08:00 96.8 73 17 132/63 (86) 92 01/25/17 21:30 21 Labs Laboratory Tests Test 01/29/17 05:09 Blood Urea Nitrogen 22 Creatinine 0.75 Random Glucose 102 Calcium Level 8.1 Sodium Level 144 Potassium Level 3.3 Chloride Level 110 Carbon Dioxide Level 27.4 Anion Gap 7 Estimat Glomerular Filtration Rate 73 Date/Time Source Procedure Growth Status 01/21/17 00:15 Urine Clean Catch Urine Culture - Final 10-50,000 CFU/ML MIXED GRAM POSITIVE ... Complete Radiology Last Impressions Abdomen/Pelvis CT 01/20/170 Signed Impressions: Service Date/Time: Friday, January 20, 2017 23:51 - CONCLUSION: 1. Abdominal wall hernia in the left lower quadrant causing gastric outlet obstruction. 2. 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 (3) Gastric outlet obstruction ICD Codes: K31.1 - Adult hypertrophic pyloric stenosis Status: Acute (4) Abnormal CT of the abdomen ICD Codes: R93.5 - Abnormal findings on diagnostic imaging of other abdominal regions, including retroperitoneum Status: Chronic (5) Gallstones ICD Codes: K80.20 - Calculus of gallbladder without cholecystitis without obstruction Status: Chronic (6) History of colon cancer ICD Codes: Z85.038 - Personal history of other malignant neoplasm of large intestine Status: Chronic Assessment and Plan POD6 - large parastomal hernia advance to full liquids HL IV Rehab soon Problem Qualifiers (1) Parastomal hernia: Qualified Codes: K43.3 - Parastomal hernia with obstruction, without gangrene Marty Hoffman MD Jan 29, 2017 11:24
--- NOTE | 2017-01-29 14:45 | HHI.PR ---
Subjective Remarks patient tolerating diet. Denies nausea, vomiting or abdominal pain. States colostomy is functioning again. Objective Vitals Vital Signs Date Time Temp Pulse Resp B/P (MAP) Pulse Ox O2 Delivery O2 Flow Rate FiO2 01/29/17 12:00 97.2 95 18 134/77 (96) 96 01/29/17 08:00 96.8 73 17 132/63 (86) 92 01/29/17 04:00 98.6 77 17 124/66 (85) 95 01/29/17 00:00 97.3 90 17 139/67 (91) 93 01/28/17 20:20 77 01/28/17 20:00 97.0 75 17 167/79 (108) 93 01/28/17 16:00 96.0 94 18 143/70 (94) 95 I/O 01/28/17 01/28/17 01/28/17 01/29/17 01/29/17 01/29/17 07:00 15:00 23:00 07:00 15:00 23:00 Intake Total 240 ml 800 ml 1240 ml Output Total 650 ml 1000 ml 800 ml 120 ml Balance -410 ml -200 ml 440 ml -120 ml Intake Oral 240 ml 800 ml 240 ml IV Total 1000 ml Output Urine Total 400 ml 600 ml 600 ml Stool Total 250 ml 400 ml 200 ml 120 ml # Bowel Movements 2 Result Diagram: 01/27/17 0833 01/29/17 0509 Imaging Last Impressions Abdomen X-Ray 01/26/17 0210 Signed Impressions: Service Date/Time: January 02:44 - CONCLUSION: Air- filled distended loops of bowel throughout the abdomen. Cutaneous ale suggest recent abdominal incision Connor Grossman MD Abdomen/Pelvis CT 01/20/17 9052 Signed Impressions: Service Date/Time: Friday, January 20, 2017 23:51 - CONCLUSION: 1. Abdominal wall hernia in the left lower quadrant causing gastric outlet obstruction. 2. Cholelithiasis Antoni Concepcion MD Objective Remarks AAOx3 PERRLA Clear lungs BL Abdomen is soft, tender to palpation of surgical area. Surgical incision covered by dressing C/D/I no edema in lower extremities Procedures sp repair of peristomal hernia with Mesh. Medications and IVs Current Medications Medications (Trade) Dose Ordered Sig/Paul Route Start Time Stop Time Status Last Admin (NS Flush) 2 ml UNSCH PRN IV FLUSH 01/21/17 03:00 (NS Flush) 2 ml BID IV FLUSH 01/21/17 09:00 01/28/17 21:04 (Zofran Inj) 4 mg Q6H PRN IVP 01/21/17 03:00 01/28/17 12:50 Acetaminophen 100 ml @ 400 mls/hr Q6H PRN IV 01/21/17 03:00 (Kaity-Colace) 1 tab BID PO 01/21/17 09:00 01/29/17 08:36 (Milk Of Magnesia Liq) 30 ml Q12H PRN PO 01/21/17 03:00 (Senokot) 17.2 mg Q12H PRN PO 01/21/17 03:00 (Dulcolax Supp) 10 mg DAILY PRN RECTAL 01/21/17 03:00 (Lactulose Liq) 30 ml DAILY PRN PO 01/21/17 03:00 (Procardia) 10 mg Q8HR PO 01/21/17 09:00 01/29/17 05:12 (Prinivil) 10 mg DAILY PO 01/22/17 15:45 01/29/17 08:36 (Catapres) 0.1 mg Q6H PRN PO 01/22/17 22:30 01/22/17 23:14 (Morphine Inj) 2 mg Q3H PRN IV PUSH 01/23/17 15:15 01/25/17 14:00 ([place] 5-325 Mg) 1 tab Q4H PRN PO 01/23/17 15:15 01/28/17 12:51 (KCl) 20 meq Q12HR PO 01/25/17 09:00 01/29/17 08:36 A/P Problem List: (1) Parastomal hernia ICD Code: K43.5 - Parastomal hernia without obstruction or gangrene Status: Chronic (2) Nausea ICD Code: R11.0 - Nausea (3) HTN (hypertension) ICD Code: I10 - Essential (primary) hypertension (4) Abnormal urinalysis ICD Code: R82.90 - Unspecified abnormal findings in urine (5) BRANDY (acute kidney injury) ICD Code: N17.9 - Acute kidney failure, unspecified Status: Resolved (6) Elevated lipase ICD Code: R74.8 - Abnormal levels of other serum enzymes Status: Acute Assessment and Plan (1) Parastomal hernia Plan: The patient was admitted to the medical floor, started on IV fluids and place nothing by mouth. The patient is status post parastomal hernia repair with mesh. Patient on clear liquid diet and tolerating it. Management as per general surgery. 01/25 diet advanced to full liquid diet. 01/26 Patient did not tolerate diet overnight. Management as per recommendations as below. Patient made npo. 01/27 discussed case with GS, patient advanced to full liquid diet but still slightly nauseous. Surgery wants to continue full liquid diet. 01/28 Patient with some nausea and vomiting. Continue management as per . 01/29 Patient tolerating diet. Diet advanced by GS. (2) Nausea Plan: Continue Zofran IV as needed for nausea. 01/29 Nausea improved. Continue IV Zofran as needed. (3) HTN (hypertension) Plan: Seems to be stable today. The pressure elevated previously, however much improved after the patient also nifedipine. Continue lisinopril and nifedipine. (4) Abnormal urinalysis Plan: Urine culture concurrent with contamination. Patient is asymptomatic and white blood cell count is normal. Off antibiotics. 01/27 Given that patient is nauseous, will recheck urinalysis. 01/28 repeat ua negative. (5) BRANDY (acute kidney injury) Plan: Likely due to prerenal azotemia due to dehydration. Resolved after IV fluid administration. Creatinine likely at baseline. 01/28 Creatinine slightly elevated likely due to prerenal azotemia from decreased oral intake. Will start on Normal saline at 84 cc an hour and monitor BUN and creatinine. 01/29 Resolved after IV fluid administration. DC IV fluids. Continue to monitor BUN/Creatinine and encourage oral intake of fluids. (6) Elevated lipase Plan: Likely secondary to hernia incarceration. The patient denies nausea or abdominal pain. Continue to monitor lipase. 01/29 Lipase came down to normal range. DVT prophylaxis: SCDs, chemoprophylaxis as per general surgery. Discharge Planning Pending clearance. Dc to rehab. CM to assist. Possible DC in am. Problem Qualifiers (1) Parastomal hernia: Qualified Codes: K43.3 - Parastomal hernia with obstruction, without gangrene (2) HTN (hypertension): Qualified Codes: I10 - Essential (primary) hypertension Peter Matson MD Jan 29, 2017 14:45
[2017-01-29] MEDS: SODIUM CHLORIDE 0.9% FLUSH 10 ML FLUSH IV FLUSH SCH ×2 (14:55→20:33)
--- NOTE | 2017-01-29 15:52 | HHI.PR ---
Addendum to Inpatient Note Addendum Reason: Additional Documentation Additional Information I was called by RN to see the patient, patient complaining of shortness of breath after getting up to the restroom. The patient's nurse states that the patient's oxygen saturation came down into the 40s and is now 83 on oxygen. The patient complains of shortness of breath, denies chest pain. Patient is awake alert oriented 3, in mild respiratory distress. Lungs are clear to auscultation bilaterally, no wheezing or rhonchi auscultated. S1-S2 is with regular rate and rhythm. The patient presents with acute shortness of breath, will order a stat chest x- ray, if his x-rays of revealing [address] pulmonary angiographic to rule out PE. Peter Matson MD Jan 29, 2017 15:52
--- NOTE | 2017-01-29 16:10 | RADRPT ---
EXAM DATE/TIME: 01/29/2017 15:52 [place] COMPARISON: No previous studies available for comparison. INDICATIONS : Shortness of breath and lightheaded for several minutes. MEDICAL HISTORY : None. SURGICAL HISTORY : None. ENCOUNTER: Initial ACUITY: 1 day PAIN SCORE: 0/10 LOCATION: Bilateral chest FINDINGS: Aortic calcification. There is patchy parenchymal density at the left lung base greater than right fernanda ng base suspect for atelectasis and airspace disease. No definite effusion degenerative changes of th e spine are noted. Cardiomegaly. CONCLUSION: Basilar airspace disease and atelectasis. Chencho Duffy MD on January 29, 2017 at 16:09 Board Certified Radiologist. This report was verified electronically.
[2017-01-29] MEDS: MORPHINE SULFATE 2 MG/ML INJ IV PUSH PRN (22:11)
[2017-01-29 22:16] LABS: BLOOD GAS BASE EXCESS 0.7 mmol/L (-2-2); BLOOD GAS CARBOXYHEMOGLOBIN 1.1 % (0-4); BLOOD GAS HCO3 24 mmol/L (22-26); BLOOD GAS METHEMOGLOBIN 0.7 % (0-2); BLOOD GAS O2 HGB SATURATION 89 % (90-100); BLOOD GAS OXYGEN CONTENT 16.8 Vol % (12.0-20.0); BLOOD GAS PCO2 34 mmHg (38-42); BLOOD GAS PO2 57 mmHg (61-120); BLOOD GAS TOTAL HGB 13.5 G/DL (12.0-16.0); TEMP CORR TO 98.6
[2017-01-29 22:18] LABS: CRITICAL VALUE YES; DRAW SITE RA; LITER FLOW 15 L/M; NUMBER OF ARTERIAL PUNCTURES 1; STAT YES; ULNAR PULSE PRESENT
--- NOTE | 2017-01-29 22:52 | HHI.PR ---
Addendum to Inpatient Note Addendum Reason: Additional Documentation Additional Information S: Received a call for a Halicat. Came to see patient. Informed by the nurse that the patient has been short of breath and desat'd to 85% while on 2L NC. She was also having abdominal pain near her ostomy site and one episode of vomiting. Pt states that she felt lousy, breathing was so-so. No anxiety, no CP , no leg pain, no recent falls. O:VS: BP 159/74, HR 86, O2 sat 92% on non-rebreather mask General: Patient sitting in bed on non-rebreather mask. Speaking in complete sentences, in no acute distress. Cardio: RRR, no murmurs, rubs, or gallops detected Respiratory: lungs clear to auscultation bilaterally, no wheezes, crackles, or rales A/P: 86yo white female POD6 from large parastomal hernia repair with shortness of breath. Patient was given 2mg of morphine when we entered the room which improved her pain and vitals ABG was ordered before our arrival-> pH 7.47 pO2 57 pCO2 34 We recommended pulmonary imaging; [facility]. Chio Pelayo MD R1 Jan 29, 2017 22:52
[2017-01-29] MEDS ORDERED: MORPHINE SULFATE 2 MG/ML INJ ONE (23:16)
[2017-01-29] MEDS ORDERED: BUMETANIDE INJ 1 MG/4 ML VIAL IV PUSH ONE (23:30)
[2017-01-29] MEDS ORDERED: MORPHINE SULFATE 2 MG/ML INJ IV PUSH ONE (23:30)
--- NOTE | 2017-01-29 23:43 | PD.PROCEDR ---
Procedure Note Procedure DATE: 01/29/17 CENTRAL LINE PLACEMENT: Right internal jugular vein. INDICATION: Central venous access CONSENT Informed consent for procedure was obtained from patient after discussion of risks, benefits, alternatives. DESCRIPTION OF THE PROCEDURE The patient was placed in supine position, mild Trendelenburg. The skin was cleansed with Chloraprep 3. Additional barrier precautions included large sterile drape, sterile gloves, sterile gown, face mask, and hat. 1 % lidocaine was used for local anesthesia. Under direct ultrasound guidance and on single attempt, the vein was accessed with an introducer needle. The guide wire was advanced and the tract was dilated. Using Seldinger technique a 7 [place] 20 cm antimicrobial coated triple-lumen catheter was advanced to a depth of 18 centimeters. The guide wire was removed. All ports had good return of dark venous blood and flushed easily with saline. The central line was secured with Stat -Lock. A sterile dressing with antibiotic disc was applied. ESTIMATED BLOOD LOSS: Minimal COMPLICATIONS: No apparent complications. STAT CT chest has previously been ordered and is being performed right now Herlinda Means MD Jan 29, 2017 23:43
[2017-01-29] MEDS ORDERED: IOHEXOL 350 MG/ML 10 ML VIAL (for RAD DIAG) IVCONTRAST ONE (23:44)
--- NOTE | 2017-01-29 23:58 | HHI.PR ---
Addendum to Inpatient Note Addendum Reason: Additional Documentation Additional Information A HALICAT was called on this patient because she had increasing oxygen requirements (100% nonrebreather mask) and was reporting shortness of breath with shallow tachypneic breathing. Stat ABGs were ordered and showed oxygen saturation of 89% and PO2 of 57 on 100% nonrebreather. Dr. Davis had previously recommended CT PA in the event of nonspecific chest x-ray results- and chest x-ray showed bibasilar airspace disease and atelectasis. Stat CT PA was ordered. The patient was reporting 10/10 abdominal pain near her surgical area - she is postop day 6 from large peristomal hernia repair. The nurse reported her with vomiting and abdominal guarding. I recommended PRN morphine to be given and to notify general surgery of patient's abdominal complaints. Dr. Hoffman recommended transfer to ICU. Case discussed with Dr. Moffett, supervising physician. After PRN morphine, the patient's breathing improved but she continued to report 10/10 abdominal pain. She remains tachypneic with shallow breathing, lung sounds diminished at bases but no rales or rhonchi were auscultated. Abdomen is soft, tender in left upper quadrant. Patient reports feeling short of breath. Patient to transfer to ICU. Abd/pelvis CT and Chest CT PA ordered - having difficulty with IV access at time of transfer. May need anchorman to start central line. . Tabitha Cline Jan 29, 2017 23:58
[2017-01-30] VITALS (7 sets, daily range): BP systolic 194–202; BP diastolic 86–98; PULSE 94–102; RESP 19–30; TEMP 98–98.5; O2SAT 92–100
[2017-01-30] MEDS ORDERED: MAGNESIUM SULFATE INJ 4 GM in SODIUM CHLORIDE 0.9% INJ 92 ML IV PRN ×2
[2017-01-30] MEDS ORDERED: POTASSIUM CHLOR 20 MEQ PREMIX 100 ML IV PRN ×2
[2017-01-30] MEDS ORDERED: POTASSIUM PHOSPHATE MONOBASIC 500 MG TAB PO PRN
[2017-01-30] MEDS ORDERED: MAGNESIUM OXIDE 400 MG TAB PO PRN
[2017-01-30] MEDS ORDERED: POTASSIUM CHLOR 40 MEQ PREMIX 100 ML IV PRN ×2
[2017-01-30] MEDS ORDERED: POTASSIUM PHOSPHATE MONOBASIC 500 MG TAB PO/TUBE PRN
[2017-01-30] MEDS ORDERED: POTASSIUM CHLORIDE 25 MEQ EFFERVESCENT TAB PO PRN
[2017-01-30] MEDS ORDERED: SODIUM PHOSPHATE INJ 30 MMOL in SODIUM CHLOR 0.9% 250 ML INJ 240 ML IV PRN ×2
[2017-01-30] MEDS ORDERED: MAGNESIUM SULFATE INJ 2 GM in SODIUM CHLORIDE 0.9% INJ 96 ML IV PRN ×2
[2017-01-30] MEDS ORDERED: POTASSIUM PHOSPHATE INJ 30 MMOL in SODIUM CHLOR 0.9% 250 ML INJ 250 ML IV PRN ×2
--- NOTE | 2017-01-30 00:07 | RADRPT ---
EXAM DATE/TIME: 01/29/2017 23:31 [facility] COMPARISON: No previous studies available for comparison. INDICATIONS : Hypoxia. IV CONTRAST: 95 cc Omnipaque 350 (iohexol) IV ; Cumulative dose for multiple exams. RADIATION DOSE: 6.35 CTDIvol (mGy) MEDICAL HISTORY : Cardiovascular disease. Gastroesophageal reflux disease. Colon cancer. Breast cancer. SURGICAL HISTORY : Appendectomy. Mastectomy. ENCOUNTER: Initial ACUITY: 1 day PAIN SCALE: 0/10 LOCATION: chest TECHNIQUE: Volumetric scanning of the chest was performed using a pulmonary embolism protocol MIP images were re constructed. Using automated exposure control and adjustment of the mA and/or kV according to patien t size, radiation dose was kept as low as reasonably achievable to obtain optimal diagnostic quality images. DICOM format image data is available electronically for review and comparison. Follow-up recommendations for detected pulmonary nodules are based at a minimum on nodule size and pa tient risk factors according to Fleischner Society Guidelines. FINDINGS: Extensive acute appearing bilateral pulmonary emboli. There is embolus in the right main pulmonary ar jasen and extending into all lobes of the right lung, most severely involving the right lower lobe. Th ere is a more distal involvement of the pulmonary artery branches for the left upper lobe and left lo wer lobe. The proximal right and left pulmonary arteries are mildly distended and there also appears to be the possibility of right ventricular strain with some leftward deviation of the interventricula r septum noted. There is left greater than right basilar atelectasis. [id number] right and small left ple ural effusions are present. No pneumothorax. Right and left coronary artery calcification noted. CONCLUSION: 1. Extensive bilateral pulmonary emboli as above. Probable right ventricular strain. 2. Small to moderate right and small left pleural effusions with bibasilar atelectasis. 3. Coronary artery calcification. Roque Abreu MD on January 30, 2017 at 0:02 Board Certified Radiologist. This report was verified electronically.
--- NOTE | 2017-01-30 00:18 | RADRPT ---
EXAM DATE/TIME: 01/29/2017 23:31 [facility] COMPARISON: CT ABDOMEN & PELVIS W CONTRAST, January 20, 2017, 23:51. INDICATIONS : Abdominal pain. IV CONTRAST: 95 cc Omnipaque 350 (iohexol) IV ; Cumulative dose for multiple exams. ORAL CONTRAST: No oral contrast ingested. RADIATION DOSE: 9.45 CTDIvol (mGy) MEDICAL HISTORY : Cardiovascular disease. Hypertension. Colon cancer. Breast cancer. SURGICAL HISTORY : Appendectomy. Mastectomy. ENCOUNTER: Initial ACUITY: 1 day PAIN SCALE: 8/10 LOCATION: Bilateral abdomen TECHNIQUE: Volumetric scanning of the abdomen and pelvis was performed. Using automated exposure control and ad justment of the mA and/or kV according to patient size, radiation dose was kept as low as reasonably achievable to obtain optimal diagnostic quality images. DICOM format image data is available electro nically for review and comparison. FINDINGS: Interim abdominal wall surgery with mesh. An ileostomy is present. There is a fluid and air collectio n in the left anterior abdominal wall that measures approximately 3.1 x 12.1 cm in size and surrounds the ostomy. There is mildly indurated intraperitoneal fat adjacent to the ostomy as well. Previously seen stomach herniation is no longer present. Distal stomach and proximal duodenum have some wall th ickening. There are distended loops of small bowel in the pelvic cavity. Patchy acute infarcts are seen of both kidneys, right worse than left. The right kidney is about 50% affected, the left around 10-20%. A small acute infarct also involves the right hepatic lobe adjacent to the falciform ligament. A 6 mm thrombus is seen in the mid abdominal aorta, series 304 image 41. Spleen, pancreas and adrenal glands within normal limits. Cholelithiasis again noted. CONCLUSION: 1. Interim abdominal wall repair with mesh and an ileostomy. Fluid and air collection in the anterior abdominal wall surrounding the ostomy, could be an abscess. Intra-abdominal fat in the adjacent rachael toneal cavity is indurated but I don't see an intra-abdominal fluid collection. 2. Suspected small bowel obstruction within the pelvic cavity. I don't clearly see an etiology. 3. Scattered acute infarcts of both kidneys and focally of the liver. Small thrombus noted in the mid abdominal aorta. I don't see a thrombus of the superior mesenteric artery. 1. Roque Abreu MD on January 30, 2017 at 0:06 Board Certified Radiologist. This report was verified electronically.
[2017-01-30 00:42] LABS: AUTOMATED NEUTROPHIL # 10.7 TH/MM3 (1.8-7.7); BASOPHIL % 0.1 % (0.0-2.0); EOSINOPHIL % 0.1 % (0.0-4.0); HEMO FLAGS DIFF FINAL; LYMPH % 4.4 % (9.0-44.0); LYMPHOCYTE # 0.5 TH/MM3 (1.0-4.8); MEAN CELL VOLUME 89.8 FL (80.0-100.0); MEAN CORPUSCULAR HEMOGLOBIN 29.9 PG (27.0-34.0); MEAN CORPUSCULAR HGB CONC 33.3 % (32.0-36.0); NEUT % 87.4 % (16.0-70.0); PLATELET COUNT 232 TH/MM3 (150-450); RED BLOOD COUNT 4.45 MIL/MM3 (4.00-5.30); RED CELL DISTRIBUTION WIDTH 13.9 % (11.6-17.2); WHITE BLOOD COUNT 12.2 TH/MM3 (4.0-11.0)
[2017-01-30 00:49] LABS: APTT (PATIENT) 27.5 SEC (24.3-30.1); INTERNATIONAL NORMALIZED RATIO 1.2 RATIO; PROTHROMBIN TIME - PATIENT 13.1 SEC (9.8-11.6)
[2017-01-30 01:00] LABS: ALT (GPT) 16 U/L (10-53); ANION GAP 11 MEQ/L (5-15); AST (GOT) 37 U/L (15-37); BICARBONATE 24.7 MEQ/L (21.0-32.0); BLOOD UREA NITROGEN 23 MG/DL (7-18); CHLORIDE 106 MEQ/L (98-107); GLOMERULAR FILTRATION RATE 51 ML/MIN (>89); POTASSIUM 3.6 MEQ/L (3.5-5.1); SODIUM (NA) 142 MEQ/L (136-145)
[2017-01-30 01:03] LABS: ALKALINE PHOSPHATASE 56 U/L (45-117); TOTAL BILIRUBIN ADULT 0.6 MG/DL (0.2-1.0)
--- NOTE | 2017-01-30 01:11 | PD.PROCEDR ---
Procedure Note Procedure Procedure: Right chest tube placement Indication: Right pleural effusion Details of procedure: Informed consent was obtained from the patient after discussion of risk, benefits, alternatives. The patient was positioned upright and supported by RN. The posterio-lateral chest wall was cleaned with ChloraPrepx3. Regional sterile drapes were applied. 1% lidocaine was used for local anesthesia and injected into the subcutaneous and deep muscle tissues. Introducer needle was advanced while aspirating and straw colored fluid was aspirated. The wire was advanced. A 3mm skin incision was made with a scalpel blade. The 10 Maltese pigtail catheter was advanced over the wire. The wire was removed. The chest tube was secured with commercial pigtail chest tube shelton. The chest tube was connected to a Pleur-evac drainage system. There was a 1+ air leak. There was 230 straw colored output from the chest tube. Patient tolerated the procedure well Estimated blood loss: <5 mL Stat chest x-ray demonstrates apical PTX. Herlinda Means MD Jan 30, 2017 01:11
[2017-01-30] MEDS ORDERED: HEPARIN-D5W 25,000 U/250 ML 250 ML IV PRN (01:15)
[2017-01-30] MEDS ORDERED: HEPARIN SODIUM - IV 10,000 UNITS/10 ML VIAL IV PUSH ONE (01:15)
--- NOTE | 2017-01-30 01:20 | PD.CONS ---
[facility] Service Critical Care Medicine Consult Requested By Dr. Hoffman Reason for Consult Critical care management of patient with respiratory distress Primary Care Physician Eduardo Casanova DO History of Present Illness 86-year-old female with past medical history of breast cancer, colon cancer status post partial colectomy and colostomy 18 years ago, GERD, hypertension who originally presented to [facility] emergency department 01/20/17 with abdominal distension, nausea and vomiting. She had a large parastomal hernia containing stomach and bowel and causing gastric outlet obstruction. NGT was placed and the hernia was reduced in the ED. She underwent parastomal hernia repair with mesh 01/23/[address] Marty Hoffman. Postoperatively, she has been dealing with some nausea but apparently was starting to tolerate diet advancement and plans were being made for transition to [facility]. Around 4 pm she developed SOB while going to the restroom and sats were in the 40s. She initially improved on NC. CXR was obtained and showed only mild RLL atelectasis. Around 11 pm she developed worsening hypoxemia and was placed on NR. She was transferred to [facility] [place] and CCM consult was obtained. CTPA and CT abd/ pelvis had been ordered by hospitalist but could not be obtained because of inadequate IV access despite multiple attempts by nursing. R IJ CVL was placed and CT was obtained which demonstrated extensive acute bilateral PE. There is large embolus in the right main with subsegmental thrombus throughout. There is thrombus in the DELVIN and LLL. There is evidence of RV strain. CT abd/pelvis demonstrates acute bilateral renal infarcts, R hepatic infarct. Small bowel is distended. There is a fluid collection in the anterior abdominal wall. She has a moderate R pleural effusion which will be removed by pigtail catheter and heparin drip will be initiated. Review of Systems Constitutional: DENIES: Fever, Night Sweats Endocrine: DENIES: Polydipsia Ears, nose, mouth, throat: DENIES: Throat pain, Epistaxis Cardiovascular: DENIES: Chest pain Gastrointestinal: COMPLAINS OF: Abdominal pain, Nausea Musculoskeletal: COMPLAINS OF: Joint pain Integumentary: DENIES: Rash Hematologic/lymphatic: DENIES: Bruising Neurologic: DENIES: Headache Psychiatric: DENIES: Confusion Past Family Social History Allergies: Coded Allergies: adhesive (Unverified Allergy, Severe, 10/25/16) penicillin G (Unverified Allergy, Unknown, GETS A RASH, 10/25/16) ciprofloxacin (Verified Adverse Reaction, Intermediate, 01/21/17) LOCALIZED REDNESS AND ITCHING AT IV SITE. NO SWELLING. Past Medical History Breast cancer Colorectal cancer Atrial fibrillation GERD Hypertension Arthritis Vitamin D deficiency Past Surgical History Left mastectomy Bilateral cataract salt surgery Partial colectomy with colostomy for cancer which has been in remission for 18 years Appendectomy Reported Medications Home medications were: Hydrocodone 5/325 one by mouth every 4 hours when necessary pain Metamucil 1 scoop by mouth 3 times a day when necessary constipation Vitamin D3 one tab by mouth daily Active Ordered Medications Current Medications Medications (Trade) Dose Ordered Sig/Paul Route Start Time Stop Time Status Last Admin (NS Flush) 2 ml UNSCH PRN IV FLUSH 01/21/17 03:00 (NS Flush) 2 ml BID IV FLUSH 01/21/17 09:00 01/29/17 20:33 (Zofran Inj) 4 mg Q6H PRN IVP 01/21/17 03:00 01/28/17 12:50 Acetaminophen 100 ml @ 400 mls/hr Q6H PRN IV 01/21/17 03:00 (Kaity-Colace) 1 tab BID PO 01/21/17 09:00 01/29/17 20:35 (Milk Of Magnesia Liq) 30 ml Q12H PRN PO 01/21/17 03:00 (Senokot) 17.2 mg Q12H PRN PO 01/21/17 03:00 (Dulcolax Supp) 10 mg DAILY PRN RECTAL 01/21/17 03:00 (Lactulose Liq) 30 ml DAILY PRN PO 01/21/17 03:00 (Procardia) 10 mg Q8HR PO 01/21/17 09:00 01/29/17 20:35 (Prinivil) 10 mg DAILY PO 01/22/17 15:45 01/29/17 08:36 (Catapres) 0.1 mg Q6H PRN PO 01/22/17 22:30 01/22/17 23:14 (Morphine Inj) 2 mg Q3H PRN IV PUSH 01/23/17 15:15 01/29/17 22:11 ([place] 5-325 Mg) 1 tab Q4H PRN PO 01/23/17 15:15 01/28/17 12:51 (KCl) 20 meq Q12HR PO 01/25/17 09:00 01/29/17 20:35 Potassium Chloride 100 ml @ 50 mls/hr Q2H PRN IV 01/30/17 00:00 Potassium Chloride 100 ml @ 50 mls/hr Q2H PRN IV 01/30/17 00:00 (K-Lyte Cl Eff) 50 meq UNSCH PRN PO 01/30/17 00:00 Potassium Chloride 100 ml @ 25 mls/hr UNSCH PRN IV 01/30/17 00:00 Potassium Chloride 100 ml @ 50 mls/hr Q2H PRN IV 01/30/17 00:00 Magnesium Sulfate 4 gm/Sodium Chloride 100 ml @ 50 mls/hr UNSCH PRN IV 01/30/17 00:00 (Mag-Ox) 800 mg UNSCH PRN PO 01/30/17 00:00 Magnesium Sulfate 2 gm/Sodium Chloride 100 ml @ 50 mls/hr UNSCH PRN IV 01/30/17 00:00 (K-Phos) 2,000 mg Q4H PRN PO 01/30/17 00:00 Sodium Phosphate 30 mmol/Sodium Chloride 250 ml @ 42 mls/hr UNSCH PRN IV 01/30/17 00:00 (K-Phos) 2,000 mg UNSCH PRN PO/TUBE 01/30/17 00:00 Potassium Phosphate 30 mmol/ Sodium Chloride 260 ml @ 42 mls/hr UNSCH PRN IV 01/30/17 00:00 Heparin Sodium/ Dextrose 250 ml @ 10 mls/hr TITRATE PRN IV 01/30/17 01:15 Family History She has a son who has MS Another son has Parkinson's She has a daughter with rheumatoid arthritis Social History Lifetime nonsmoker. 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 Physical Exam Vital Signs Vital Signs Date Time Temp Pulse Resp B/P (MAP) Pulse Ox O2 Delivery O2 Flow Rate FiO2 01/29/17 20:00 97.1 88 19 126/65 (85) 90 01/29/17 16:00 96.4 97 24 124/61 (82) 87 01/29/17 12:00 97.2 95 18 134/77 (96) 96 01/29/17 08:00 96.8 73 17 132/63 (86) 92 01/29/17 04:00 98.6 77 17 124/66 (85) 95 Physical Exam GENERAL: Elderly very pleasant and alert female who is sitting up in ISC bed. She is tachypneic and complaining of abdominal pain. SKIN: Warm and dry. HEAD: Atraumatic. Normocephalic. EYES: Pupils equal and round. No scleral icterus. No injection or drainage. ENT: No nasal bleeding or discharge. Mucous membranes pink and moist. NECK: Trachea midline. No JVD. CARDIOVASCULAR: Regular rate and rhythm. No murmurs rubs or gallops. RESPIRATORY: Very tachypneic but no accessory muscle use. Diminished bibasilar. On NR with sats 95%. GASTROINTESTINAL: Abdomen soft. Midline incision with dressing in place that is clean and dry. The ale are intact. Ostomy has green/brown output with well perfused mucosa. There is some tenderness around the stoma but no rebound, guarding or peritoneal signs. Bowel sounds are present. No tympany. MUSCULOSKELETAL: Extremities without clubbing, cyanosis. Trace pedal edema bilaterally. NEUROLOGICAL: Awake and alert. No obvious cranial nerve deficits. Motor grossly within normal limits. Normal speech. Oriented to person, [facility], circumstance. Laboratory Laboratory Tests Test 01/29/17 05:09 01/29/17 22:05 01/30/17 00:25 Blood Urea Nitrogen 22 23 Creatinine 0.75 1.02 Random Glucose 102 200 Calcium Level 8.1 8.1 Sodium Level 144 142 Potassium Level 3.3 3.6 Chloride Level 110 106 Carbon Dioxide Level 27.4 24.7 Anion Gap 7 11 Estimat Glomerular Filtration Rate 73 51 Blood Gas Puncture Site RA Blood Gas Patient Temperature 98.6 Blood Gas HCO3 24 Blood Gas Base Excess 0.7 Blood Gas Oxygen Saturation 89 Arterial Blood pH 7.47 Arterial Blood Partial Pressure CO2 34 Arterial Blood Partial Pressure O2 57 Arterial Blood Oxygen Content 16.8 Arterial Blood Carboxyhemoglobin 1.1 Arterial Blood Methemoglobin 0.7 Blood Gas Hemoglobin 13.5 Oxygen Delivery Device Non-Rebreathing Mask Blood Gas Liter Flow 15 White Blood Count 12.2 Red Blood Count 4.45 Hemoglobin 13.3 Hematocrit 40.0 Mean Corpuscular Volume 89.8 Mean Corpuscular Hemoglobin 29.9 Mean Corpuscular Hemoglobin Concent 33.3 Red Cell Distribution Width 13.9 Platelet Count 232 Mean Platelet Volume 8.7 Neutrophils (%) (Auto) 87.4 Lymphocytes (%) (Auto) 4.4 Monocytes (%) (Auto) 8.0 Eosinophils (%) (Auto) 0.1 Basophils (%) (Auto) 0.1 Neutrophils # (Auto) 10.7 Lymphocytes # (Auto) 0.5 Monocytes # (Auto) 1.0 Eosinophils # (Auto) 0.0 Basophils # (Auto) 0.0 CBC Comment DIFF FINAL Differential Comment Prothrombin Time 13.1 Prothromb Time International Ratio 1.2 Activated Partial Thromboplast Time 27.5 Total Protein 6.0 Albumin 2.6 Phosphorus Level 3.0 Alkaline Phosphatase 56 Aspartate Amino Transf (AST/SGOT) 37 Alanine Aminotransferase (ALT/SGPT) 16 Total Bilirubin 0.6 Troponin I 0.94 Date/Time Source Procedure Growth Status 01/21/17 00:15 Urine Clean Catch Urine Culture - Final 10-50,000 CFU/ML MIXED GRAM POSITIVE ... Complete Result Diagram: 01/27/17 0833 01/29/17 0509 Assessment and Plan Problem List: (1) Bilateral pulmonary embolism ICD Code: I26.99 - Other pulmonary embolism without acute cor pulmonale Status: Acute (2) Hepatic infarction ICD Code: K76.3 - Infarction of liver Status: Acute (3) Renal infarct ICD Code: N28.0 - Ischemia and infarction of kidney Status: Acute (4) Respiratory distress ICD Code: R06.03 - Acute respiratory distress Status: Acute (5) Leukocytosis ICD Code: D72.829 - Elevated white blood cell count, unspecified Status: Acute (6) Colostomy in place ICD Code: Z93.3 - Colostomy status Status: Chronic (7) Parastomal hernia ICD Code: K43.5 - Parastomal hernia without obstruction or gangrene Status: Resolved (8) Nausea ICD Code: R11.0 - Nausea Status: Acute (9) HTN (hypertension) ICD Code: I10 - Essential (primary) hypertension Status: Chronic (10) BRANDY (acute kidney injury) ICD Code: N17.9 - Acute kidney failure, unspecified Status: Resolved Assessment and Plan NEURO: Postoperative Pain Lortab as needed for pain. Morphine as needed for breakthrough pain RESP: Acute hypoxia with respiratory distress Bilateral pulmonary emboli Bilateral pleural effusions right greater than left On NR. Bipap is not a good option due to her nausea and potential for gastric distension and vomiting. She is agreeable to intubation if needed. R pigtail chest tube placed to drain R pleural effusion before initiation of heparin. Pleural fluid studies sent. -20 cm suction. 230 cc of straw colored output. She is hemodynamically stable but has submassive PE given appearance of right heart strain and troponin elevation of 0.94, BNP elevation. She has a large clot burden. Her risk of mortality is high and she accepts this saying " I have lived a good life and now I am feeling bad all the time so it is fine if y'all let me go." Unfortunately, she also has several relative contraindications to thrombolytic including surgery within the last 3 weeks, age >75. If she becomes hemodynamically unstable, given risk/benefit I would proceed with TPA despite these relative contraindications. At this point I will initiate heparin drip and monitor for evidence of bleeding. If she has no bleeding with this and Echo in am still shows heart strain could entertain low dose thrombolytic (50 mg) if she is accepting of risk/benefit scenario. However this would be a rather aggressive therapy with significant risk involved. While she does not seem concerned about the risk of mortality or risk of recurrent PE, she does enjoy being helpful around the home with cleaning and laundry and she may be more likely to be able to perform these tasks if treated with fibrinolytic + heparin rather than heparin alone. Nonetheless, if she remains stable I am inclined to treat with heparin alone and transition to NOAC. CV: Paroxysmal Atrial fibrillation Hypertension Currently sinus rhythm. Lisinopril 10 mg po daily, hold for SBP <130 Nifedipine 10 mg po q 8 hours hold for SBP <130 Followup 2 D echo, cardiac markers, BNP. Therapeutic anticoagulation with heparin target PTT 40-75 GI: Symptomatic Parastomal hernia s/p repair with mesh 01/23/[address] Hoffman POD #7 Gastric outlet obstruction Cholelithiasis Colostomy in place H/o colon cancer s/p bowel resection 18 years ago Right hepatic infarct Nausea CT abd/pelvis was obtained - fluid and air collection in the anterior abdominal wall, could be abscess per radiology report. Suspected small bowel obstruction. Will keep NPO for now with diet management per general surgery in am. If she is vomiting, will place NGT. I am not sure this is an abscess. The exam is relatively benign and she is afebrile and not septic appearing. I will defer management to surgical colleagues. Will hold off on antibiotics at this time. Zofran prn. Famotidine Bowel regimen FEN/RENAL: Bilateral renal infarcts Insert Bailey to monitor intake and output carefully and to allow safe method of urination considering a high degree of respiratory distress and hypoxia Monitor electrolytes and replace as indicated per ICU electrolyte replacement protocol. ID: U/a negative. Blood cultures sent. Monitor off antibiotics as per discussion above under "GI" HEME: Bilateral pulmonary emboli R hepatic infarct Bilateral renal infarcts (50% R kidney 10-20% L kidney) Thrombus in abdominal aorta. Monitor CBC and monitor for closely for evidence of bleeding while initiating therapeutic anticoagulation Will initiate heparin acutely and then initiate oral anticoagulant, likely Eliquis. ENDO: Euglycemic PROPH: Heparin drip will be initiated for VTE treatment. Famotidine 10 g IV every 12 hours for stress ulcer prophylaxis ACCESS: Right IJ central venous line placed 01/29 #1 Patient is critically ill with severe hypoxemia and tachypnea on nonrebreather. She has bilateral pulmonary emboli in addition to renal and liver infarcts and is at high risk for further decompensation and . She needs to be monitored carefully in [facility] [place]. She is agreeable to intubation if needed for respiratory failure. She does not want t to receive ACLS if she has cardiac arrest. She states she hasdiscussed this with her family many times in the past and she does not want us to call her grandson because he needs to rest because he has to work in the morning. I have updated patient about her diagnosis. She seems to fully understand what is going on and was able to describe her prior surgery to me indicating that she is capacitated for medical decision-making. Her prognosis is poor. Would consider palliative care if she is not improving. Discussed with Dr. Hoffman and appreciate his consultation. CCT 60 minutes exclusive of separately billable procedures. Problem Qualifiers (1) Parastomal hernia: Qualified Codes: K43.3 - Parastomal hernia with obstruction, without gangrene (2) HTN (hypertension): Qualified Codes: I10 - Essential (primary) hypertension Herlinda Means MD Jan 30, 2017 01:20
[2017-01-30] MEDS: MORPHINE SULFATE 2 MG/ML INJ IV PUSH PRN ×6 (01:29→10:35)
--- NOTE | 2017-01-30 01:40 | RADRPT ---
EXAM DATE/TIME: 01/30/2017 01:06 [facility] COMPARISON: CHEST SINGLE AP, January 29, 2017, 15:52. INDICATIONS : Post chest tube placement on right side. MEDICAL HISTORY : None. SURGICAL HISTORY : None. ENCOUNTER: Subsequent ACUITY: 1 week PAIN SCORE: 0/10 LOCATION: Bilateral chest FINDINGS: Small caliber chest tube has been placed on the right at the base. Decreased pleural effusion. A smal l apical pneumothorax is now present. There is now a right internal jugular central venous catheter with tip in the lower right atrium. Mild left base atelectasis and tiny effusion again noted. CONCLUSION: 1. Tiny right apical pneumothorax. Right chest tube is in place at the base. 2. New right internal jugular central venous catheter with tip in the lower portions of the right atr ium. 3. Trace atelectasis and small pleural effusion at the left lung base not significantly changed. Roque Abreu MD on January 30, 2017 at 1:36 Board Certified Radiologist. This report was verified electronically.
[2017-01-30] MEDS: ONDANSETRON HCL 4 MG/2 ML VIAL IVP PRN (01:44)
[2017-01-30 01:52] LABS: TOTAL PROTEIN,PLEURAL FLUID 3.2 GM/DL
[2017-01-30 02:49] LABS: PLEURAL FLUID LYMPHS 38 %
[2017-01-30] MEDS: FAMOTIDINE 20 MG/2 ML VIAL IV PUSH SCH ×2 (02:58→14:00)
[2017-01-30] MEDS ORDERED: ACETAMINOPHEN/HYDROcodone 325 MG/5 MG TAB PO PRN (03:30)
[2017-01-30] MEDS ORDERED: cloNIDine HCL 0.1 MG TAB PO PRN (04:30)
[2017-01-30 05:25] LABS: HEMATOCRIT 40.9 % (35.0-46.0); MEAN CELL VOLUME 89.8 FL (80.0-100.0); MEAN CORPUSCULAR HEMOGLOBIN 30.1 PG (27.0-34.0); MEAN CORPUSCULAR HGB CONC 33.5 % (32.0-36.0); PLATELET COUNT 234 TH/MM3 (150-450); RED BLOOD COUNT 4.56 MIL/MM3 (4.00-5.30); RED CELL DISTRIBUTION WIDTH 13.9 % (11.6-17.2); REVIEW FLAG FINAL; WHITE BLOOD COUNT 15.1 TH/MM3 (4.0-11.0)
[2017-01-30 05:50] LABS: BICARBONATE 24.7 MEQ/L (21.0-32.0); MAGNESIUM 1.6 MG/DL (1.5-2.5); POTASSIUM 3.6 MEQ/L (3.5-5.1)
[2017-01-30] MEDS: NIFEdipine 10 MG CAP PO SCH ×2 (05:52→14:00)
[2017-01-30 07:29] LABS: APTT (PATIENT) 91.6 SEC (24.3-30.1)
[2017-01-30] MEDS: LISINOPRIL 10 MG TAB PO SCH (08:14)
[2017-01-30] MEDS: POTASSIUM CHLORIDE 20 MEQ CONTROLLED RELEASE TAB PO SCH (08:14)
[2017-01-30] MEDS: SODIUM CHLORIDE 0.9% FLUSH 10 ML FLUSH IV FLUSH SCH (08:14)
[2017-01-30] MEDS: DOCUSATE SODIUM 50 MG/SENNA 8.6 MG TAB PO SCH (08:14)
[2017-01-30] MEDS ORDERED: MORPHINE SULFATE 2 MG/ML INJ IV PUSH PRN (09:00)
--- NOTE | 2017-01-30 09:32 | RADRPT ---
EXAM DATE/TIME: 01/30/2017 08:25 [place] COMPARISON: No previous studies available for comparison. INDICATIONS : Pulmonary embolism. MEDICAL HISTORY : Carcinoma, breast. Carcinoma, colon. Hypertension. Afib. GERD. SURGICAL HISTORY : Appendectomy.Mastectomy, left. Colectomy. Colostomy. Parastomal hernia repair. ENCOUNTER: Initial ACUITY: 1 day PAIN SCORE: 3/10 LOCATION: Bilateral leg. TECHNIQUE: Venous ultrasound of the left and right leg was performed from the inguinal ligament to the proximal calf. Real-time, color Doppler and spectral tracing, compression and augmentation techniques were us ed. FINDINGS: RIGHT LEG: There is normal compressibility of the deep venous system from the inguinal region to the proximal ca lf. No echogenic clot is seen in the lumen of the common femoral, femoral, popliteal, and posterior tibial veins. There is a normal response of the venous system to proximal and distal augmentation an d respiration. LEFT LEG: There is thrombus involving the proximal femoral vein as well as the profunda femoris. Popliteal and trifurcation veins are patent. CONCLUSION: 1. Deep venous thrombosis above. Antoni Concepcion MD on January 30, 2017 at 8:58 Board Certified Radiologist. This report was verified electronically.
[2017-01-30 10:23] LABS: APTT (PATIENT) 53.5 SEC (24.3-30.1)
--- NOTE | 2017-01-30 12:22 | HHI.PR ---
Subjective Subjective Notes "I don't want to have any pain." Daughter and grandson at bedside Objective Vitals/I&O Vital Signs Date Time Temp Pulse Resp B/P (MAP) Pulse Ox O2 Delivery O2 Flow Rate FiO2 01/30/17 09:03 100 Non-Rebreather 100 01/30/17 08:00 98.0 96 28 199/98 (131) 01/30/17 07:00 15.00 Labs Laboratory Tests Test 01/29/17 22:05 01/30/17 00:25 01/30/17 01:17 01/30/17 05:13 Blood Gas Puncture Site RA Blood Gas Patient Temperature 98.6 Blood Gas HCO3 24 Blood Gas Base Excess 0.7 Blood Gas Oxygen Saturation 89 Arterial Blood pH 7.47 Arterial Blood Partial Pressure CO2 34 Arterial Blood Partial Pressure O2 57 Arterial Blood Oxygen Content 16.8 Arterial Blood Carboxyhemoglobin 1.1 Arterial Blood Methemoglobin 0.7 Blood Gas Hemoglobin 13.5 Oxygen Delivery Device Non-Rebreathing Mask Blood Gas Liter Flow 15 White Blood Count 12.2 15.1 Red Blood Count 4.45 4.56 Hemoglobin 13.3 13.7 Hematocrit 40.0 40.9 Mean Corpuscular Volume 89.8 89.8 Mean Corpuscular Hemoglobin 29.9 30.1 Mean Corpuscular Hemoglobin Concent 33.3 33.5 Red Cell Distribution Width 13.9 13.9 Platelet Count 232 234 Mean Platelet Volume 8.7 8.5 Neutrophils (%) (Auto) 87.4 Lymphocytes (%) (Auto) 4.4 Monocytes (%) (Auto) 8.0 Eosinophils (%) (Auto) 0.1 Basophils (%) (Auto) 0.1 Neutrophils # (Auto) 10.7 Lymphocytes # (Auto) 0.5 Monocytes # (Auto) 1.0 Eosinophils # (Auto) 0.0 Basophils # (Auto) 0.0 CBC Comment DIFF FINAL Differential Comment Prothrombin Time 13.1 Prothromb Time International Ratio 1.2 Activated Partial Thromboplast Time 27.5 Blood Urea Nitrogen 23 24 Creatinine 1.02 1.17 Random Glucose 200 212 Total Protein 6.0 Albumin 2.6 Calcium Level 8.1 8.4 Phosphorus Level 3.0 3.8 Alkaline Phosphatase 56 Aspartate Amino Transf (AST/SGOT) 37 Alanine Aminotransferase (ALT/SGPT) 16 Total Bilirubin 0.6 Sodium Level 142 141 Potassium Level 3.6 3.6 Chloride Level 106 106 Carbon Dioxide Level 24.7 24.7 Anion Gap 11 10 Estimat Glomerular Filtration Rate 51 44 Lactate Dehydrogenase 284 Troponin I 0.94 B-Type Natriuretic Peptide 255 Pleural Fluid pH 8.0 Pleural Fluid WBC 60 Pleural Fluid RBC 535 Pleural Fluid Neutrophils 38 Pleural Fluid Lymphocytes 38 Pleural Fluid Monocytes 20 Pleural Fluid Mesothelial Cells 4 Pleural Fluid Comment Pleural Fluid Total Protein 3.2 Pleural Fluid LDH 96 Pleural Fluid Glucose 167 Magnesium Level 1.6 Test 01/30/17 06:50 01/30/17 09:50 Activated Partial Thromboplast Time 91.6 53.5 Date/Time Source Procedure Growth Status 01/30/17 03:00 Blood Peripheral Aerobic Blood Culture Pending Received 01/30/17 03:00 Blood Peripheral Anaerobic Blood Culture Pending Received 01/21/17 00:15 Urine Clean Catch Urine Culture - Final 10-50,000 CFU/ML MIXED GRAM POSITIVE ... Complete Radiology Last Impressions Abdomen/Pelvis CT 01/20/17 [id number] Signed Impressions: Service Date/Time: Friday, January 20, 2017 23:51 - CONCLUSION: 1. Abdominal wall hernia in the left lower quadrant causing gastric outlet obstruction. 2. Cholelithiasis Antoni Concepcion MD Cardiovascular: Regular Lungs: Clear Abdomen: Other (incision c/d/i ) Extremities: No edema A/P Problem List: (1) Parastomal hernia ICD Codes: K43.5 - Parastomal hernia without obstruction or gangrene Status: Resolved (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 (3) Gastric outlet obstruction ICD Codes: K31.1 - Adult hypertrophic pyloric stenosis Status: Acute (4) Abnormal CT of the abdomen ICD Codes: R93.5 - Abnormal findings on diagnostic imaging of other abdominal regions, including retroperitoneum Status: Chronic (5) Gallstones ICD Codes: K80.20 - Calculus of gallbladder without cholecystitis without obstruction Status: Chronic (6) History of colon cancer ICD Codes: Z85.038 - Personal history of other malignant neoplasm of large intestine Status: Chronic Assessment and Plan 86 year old female POD7 parastomal hernia repair with mesh -Tranfered to [facility] for large PE found on CT chest -CT abd/pelvis also done---acute infarcts of liver and kidneys -Heparin gtt -NPO -DC IVF -Patient requests comfort measures, DNR status and Hospice consult -Discussed with MICHELLE Key and Dr. Rodriguez I CERTIFY AND ATTEST THAT I PERSONALLY EXAMINED THE PATIENT IN THEIR ROOM. MS COURTNEY DOCUMENTED OUR VISIT AND ENTERED ORDERS IN THE EMR UNDER MY DIRECT SUPERVISION. I REVIEWED THE CARE PLAN WITH THE PATIENT AND THE NURSING STAFF. PATIENT AND DAUGHTER WANT HOSPICE. SHE DOES NOT WANT ANY FURTHER CARE. SHE ONLY WANTS PAIN MEDICINE. SHE WANTS TO GO TO [facility]. RYLEY WYATT MD FACS Problem Qualifiers (1) Parastomal hernia: Qualified Codes: K43.3 - Parastomal hernia with obstruction, without gangrene Aleja Gillespie CRITICAL CARE RN Jan 30, 2017 12:22 Ryley Wyatt MD Jan 31, 2017 18:16
--- NOTE | 2017-01-30 16:12 | EKG ---
Date Performed: 01/30/2017 Time Performed: 01:54:56 PTAGE: 86 years EKG: Sinus rhythm Extensive T wave changes are nonspecific Compared to prior tracing no significant change Borderline ECG PREVIOUS TRACING : 01/23/2017 10.30 DOCTOR: Yoshi Winston Interpretating Date/Time 01/30/2017 16:10:49
== END 2017-01-30 15:55 | disposition hospice, inpatient (51) | DRG 353 ==
LOC: PHED 21:48 → PHEDA 01-21 02:53 → PH3A 01-21 04:00 → N07B 01-22 21:17 → N03A 01-29 22:43
PROVIDERS: ADMIT Emergency Medicine; ATTEND Emergency Medicine
PROC: 0D9670Z Drainage of Stomach with Drainage Device, Via Natural or Artificial Opening (ICD-10-PCS; 2017-01-20)
PROC: 0WUF0JZ Supplement Abdominal Wall with Synthetic Substitute, Open Approach (ICD-10-PCS; principal; 2017-01-23 13:09)
PROC: 05HM33Z Insertion of Infusion Device into Right Internal Jugular Vein, Percutaneous Approach (ICD-10-PCS; 2017-01-29)
PROC: 0W9930Z Drainage of Right Pleural Cavity with Drainage Device, Percutaneous Approach (ICD-10-PCS; 2017-01-30)
DX: K43.3 Parastomal hernia with obstruction, without gangrene (principal); I26.99 Other pulmonary embolism without acute cor pulmonale; K76.3 Infarction of liver; N17.9 Acute kidney failure, unspecified; I48.0 Paroxysmal atrial fibrillation; E86.0 Dehydration; I74.09 Other arterial embolism and thrombosis of abdominal aorta; J90 Pleural effusion, not elsewhere classified; K31.1 Adult hypertrophic pyloric stenosis; I10 Essential (primary) hypertension; N28.0 Ischemia and infarction of kidney; N39.0 Urinary tract infection, site not specified; J98.11 Atelectasis; M19.90 Unspecified osteoarthritis, unspecified site; K21.9 Gastro-esophageal reflux disease without esophagitis; Z85.3 Personal history of malignant neoplasm of breast; Z85.038 Personal history of other malignant neoplasm of large intestine; Z92.21 Personal history of antineoplastic chemotherapy; Z92.3 Personal history of irradiation; Z84.89 Family history of other specified conditions; Y83.8 Other surgical procedures as the cause of abnormal reaction of the patient, or of later complication, without mention of misadventure at the time of the procedure; Z90.49 Acquired absence of other specified parts of digestive tract; K80.20 Calculus of gallbladder without cholecystitis without obstruction; R09.02 Hypoxemia; R06.03 Acute respiratory distress; F51.5 Nightmare disorder; Z51.5 Encounter for palliative care; Z66 Do not resuscitate
CPT/HCPCS: 32551; 36556; 36600; 43753; 71010; 71275; 74000; 74177; 76937; 80048; 80053; 81001; 82805; 82945; 83615; 83690; 83735; 83880; 83986; 84100; 84157; 84484; 85025; 85027; 85610; 85730; 87040; 87086; 89051; 93005; 93970; 94640; 94664; 96361; 96374; 96375; C1781; J0360; J0690; J0744; J1100; J1644; J1650; J2270; J2405; J2710; J3010; J7030; J7040; Q9967